=== PATIENT | male | born 1945 | race Caucasian/White ===

== ENCOUNTER 2019-04-07 06:00 | Day surgery (SDC) | payer MEDICARE, OTHER ==
[2019-04-05 11:07] LABS: BASOPHILS % (AUTO) 0.4 % (0-1); EOSINOPHILS # (AUTO) 0.1 X10'3 (0-0.9); EOSINOPHILS % (AUTO) 1.7 % (0-6); HEMATOCRIT 42.8 % (42.0-52.0); HEMOGLOBIN 14.1 g/dl (14.0-17.9); LYMPHOCYTES # (AUTO) 2.1 X10'3 (1.1-4.8); LYMPHOCYTES % (AUTO) 39.6 % (21-51); MEAN CORPUSCULAR HEMOGLOBIN 27.4 PG (27.0-31.0); MEAN CORPUSCULAR HGB CONC 32.9 g/dL (33.0-36.5); MEAN CORPUSCULAR VOLUME 83.3 FL (78-98); MEAN PLATELET VOLUME 7.3 FL (7.4-10.4); MONOCYTES # (AUTO) 0.4 X10'3 (0-0.9); MONOCYTES % (AUTO) 8.4 % (2-12); NEUTROPHILS # (AUTO) 2.7 X10'3 (1.8-7.7); NEUTROPHILS % (AUTO) 49.9 % (42-75); PLATELET COUNT 198 X10'3 (140-440); RED BLOOD COUNT 5.14 X10'6 (4.70-6.10); RED CELL DISTRIBUTION WIDTH 16.6 % (11.5-14.5); WHITE BLOOD COUNT 5.4 X10'3 (4.5-11.0)
[2019-04-05 11:15] LABS: PARTIAL THROMBOPLASTIN TIME 26 SECONDS (22-32)
[2019-04-05 11:23] LABS: ALANINE AMINOTRANSFERASE 23 U/L (12-78); ALBUMIN/GLOBULIN RATIO 1.1 (1.1-1.5); ALKALINE PHOSPHATASE 88 IU/L (46-116); ANION GAP 8 (8-16); ASPARTATE AMINO TRANSFERASE 17 U/L (10-37); BILIRUBIN,TOTAL 0.4 MG/DL (0.1-1.0); BLOOD UREA NITROGEN 15 MG/DL (7-18); CALCIUM 8.9 MG/DL (8.5-10.1); CHLORIDE 106 MMOL/L (99-107); CREATININE 0.94 MG/DL (0.60-1.10); GLUCOSE 92 MG/DL (70-104); SODIUM 142 MMOL/L (135-145); TOTAL PROTEIN 7.5 G/DL (6.4-8.2); eGFR 79 ML/MIN
[2019-04-07] VITALS (15 sets, daily range): BP systolic 92–133; BP diastolic 51–83
[~2019-04-07] VITALS: Ht 177.8 cm; Wt 100.3 kg
[2019-04-07] MEDS ORDERED: normal saline 1,000 ML IV SCH (06:20)
[2019-04-07] MEDS ORDERED: LORazepam 0.5 MG tablet PO PRN (06:20)
[2019-04-07] MEDS ORDERED: nitroGLYCERIN 0.4mg SUBLingual tab SL PRN (06:20)
[2019-04-07] MEDS ORDERED: diphenhydrAMINE 25mg capsule PO PRN (06:20)
[2019-04-07] MEDS ORDERED: AMLO5TAB PO (06:40)
[2019-04-07] MEDS ORDERED: TAM50T PO (06:40)
[2019-04-07] MEDS ORDERED: BENA20TA82 PO (06:40)
[2019-04-07] MEDS ORDERED: OMEP20CA11 PO (06:40)
[2019-04-07] MEDS ORDERED: SERT50TA PO (06:40)
[2019-04-07] MEDS ORDERED: METO-539 PO (06:40)
[2019-04-07] MEDS ORDERED: ASPI-611 PO (06:40)
[2019-04-07] MEDS ORDERED: iohexol 350 MG/ML 50ML vial IV ONE ×2 (08:22→09:18)
[2019-04-07] MEDS ORDERED: iohexol 350MG/ML 100ml bottle IV ONE (08:22)
[2019-04-07] MEDS ORDERED: LIDOcaine 1% (10mg/ml)w/preservative injection 20ml MDV ONE (08:22)
[2019-04-07] MEDS ORDERED: fentaNYL/PF 50MCG/1 ML 2ML syringe ONE (08:59)
[2019-04-07] MEDS ORDERED: midazolam 2 mg/2 ml injection ONE (08:59)
[2019-04-07] MEDS ORDERED: HYDROcodone/acetaminophen 5mg/325mg tablet PO PRN (10:10)
[2019-04-07] MEDS ORDERED: proCHLORperazine 10 MG/2 ml inj IV PRN (10:10)
[2019-04-07] MEDS ORDERED: normal saline 1000ml 1,000 ML IV SCH (10:10)
[2019-04-07] MEDS ORDERED: OXAZEpam 15mg capsule PO PRN (10:10)
[2019-04-07] MEDS ORDERED: HYDROcodone/acetaminophen 10/325mg tab PO PRN (10:10)
[2019-04-07] MEDS ORDERED: ondansetron/PF 4mg/2ml inj IV PRN (10:10)
== END 2019-04-07 16:00 | disposition home or self-care (01) ==
LOC: SSTAY O 06:00
PROVIDERS: ATTEND Internal Medicine Cardiovascular Disease
DX: I25.119 Atherosclerotic heart disease of native coronary artery with unspecified angina pectoris (principal); I10 Essential (primary) hypertension; G47.33 Obstructive sleep apnea (adult) (pediatric); F41.1 Generalized anxiety disorder; I08.3 Combined rheumatic disorders of mitral, aortic and tricuspid valves; E78.5 Hyperlipidemia, unspecified; Z87.891 Personal history of nicotine dependence; Z79.01 Long term (current) use of anticoagulants
CPT/HCPCS: 36415; 71046; 80053; 85025; 85610; 85730; 93005; 93459; 93567; 99152; 99153; C1769; J1644; J2001; J2250; J3010; J7030; Q0163; Q9967; 93458; A4620; A6258; C1760

== ENCOUNTER 2019-05-26 05:31 | Inpatient (IN) | payer MEDICARE, OTHER ==
[2019-05-24 13:51] LABS: BASOPHILS % (AUTO) 0.4 % (0-1); EOSINOPHILS # (AUTO) 0.1 X10'3 (0-0.9); EOSINOPHILS % (AUTO) 1.3 % (0-6); LYMPHOCYTES # (AUTO) 1.6 X10'3 (1.1-4.8); LYMPHOCYTES % (AUTO) 29.9 % (21-51); MEAN CORPUSCULAR HEMOGLOBIN 28.2 PG (27.0-31.0); MEAN CORPUSCULAR HGB CONC 33.3 g/dL (33.0-36.5); MEAN CORPUSCULAR VOLUME 84.6 FL (78-98); MEAN PLATELET VOLUME 7.6 FL (7.4-10.4); MONOCYTES # (AUTO) 0.4 X10'3 (0-0.9); MONOCYTES % (AUTO) 8.4 % (2-12); NEUTROPHILS # (AUTO) 3.2 X10'3 (1.8-7.7); PRE OP HEMATOCRIT 43.1 % (42.0-52.0); PRE OP HEMOGLOBIN 14.4 g/dL (14.0-17.9); PRE OP PLATELET COUNT 219 X10'3 (140-440); RED CELL DISTRIBUTION WIDTH 16.3 % (11.5-14.5)
[2019-05-24 14:01] LABS: CLARITY,URINE SLIGHTLY CLOUDY (Clear); COLOR,URINE YELLOW (Yellow); GLUCOSE, URINE NEGATIVE (Neg); KETONES,URINE NEGATIVE (Neg); LEUKOCYTE ESTERASE ,URINE NEGATIVE (Neg); NITRITES, URINE NEGATIVE (Neg); OCCULT BLOOD,URINE TRACE-INTACT (Neg); PROTEIN,URINE NEGATIVE (Neg); UROBILINOGEN,URINE 0.2 E.U/dL (0.2-1.0)
[2019-05-24 14:01] LABS: ABG BASE EXCESS -1.1 mmol/L (-2.0-3.0); ABG HCO3 22.6 mmol/L (22.0-26.0); ABG OXYGEN SATURATION 95.3 % (95-98); ABG PCO2 (T) 35.1 mmHg (35.0-45.0); ABG PH (T) 7.427 (7.350-7.450); ABG PO2 (T) 77.1 mmHg (83-108); ALLEN'S TEST Positive; FCOHb 0.7 % (0.5-1.5); FO2Hb 94.6 % (94-100); TOTAL HEMOGLOBIN 14.6 G/dl (14.0-17.9)
[2019-05-24 14:03] LABS: PRE OP PROTIME 10.7 SECONDS (9.0-12.0)
[2019-05-24 14:04] LABS: ALBUMIN 3.8 G/DL (3.4-5.0); ALBUMIN/GLOBULIN RATIO 0.9 (1.1-1.5); ALKALINE PHOSPHATASE 87 IU/L (46-116); BLOOD UREA NITROGEN 19 MG/DL (7-18); BUN/CREATININE RATIO 22.6 (5.4-32.0); CALCIUM 9.3 MG/DL (8.5-10.1); CHLORIDE 107 MMOL/L (99-107); CREATININE 0.84 MG/DL (0.60-1.10); PRE OP ALT 23 U/L (30-65); PRE OP ANION GAP 8 (8-16); PRE OP AST 19 U/L (10-37); PRE OP BILIRUB, TOTAL 0.3 MG/DL (0.0-1.0); PRE OP GLUCOSE 121 MG/DL (70-104); PRE OP POTASSIUM 3.8 MMOL/L (3.4-5.1); PRE OP SODIUM 143 MMOL/L (135-145); TOTAL CARBON DIOXIDE 28.3 MMOL/L (24-32); TOTAL PROTEIN 7.9 G/DL (6.4-8.2); eGFR 90 ML/MIN
[2019-05-24 14:09] LABS: UA COLLECTION TYPE CLN CATCH MIDSTREAM
[2019-05-24 14:14] LABS: HYALINE CASTS 0-3 /LPF (NEGATIVE); MUCUS STRANDS MANY /LPF (Neg); SQUAMOUS EPITHELIAL CELL,UR FEW /LPF (FEW)
[2019-05-24 14:16] LABS: BACTERIA,URINE NONE SEEN /HPF (Neg); WBC,URINE 0-4 /HPF (0-4)
[2019-05-26] VITALS (21 sets, daily range): BP systolic 61–132; BP diastolic 38–68
[~2019-05-26] VITALS: Ht 177.8 cm; Wt 97.6 kg
[~2019-05-26 05:31] MED LIST: AMLO5TAB PO; ASPI-611 PO; BENA20TA82 PO; DOCUMENT DATE & TIME OF BETA-BLOCKER PO ONE; LORazepam 2 mg/ml vial IV ONE; METO-384 PO; OMEP20CA11 PO; ROPIVAcaine 0.5% (5mg/ml) 30ml vial ONE; SERT50TA PO; TAM50T PO; cefazolin/dext.iso 2gm/50ml 50 ML IV ONE; famotidine 20mg tablet PO ONE; gabapentin 300mg capsule PO ONE; mupirocin 2% nasal ointment 1gm UD NS ONE; ringers solution, lacted 1,000 ML IV SCH; vancomycin inj 1,500 MG in normal saline 300ml IV soln IV ONE
[2019-05-26] MEDS ORDERED: LIDOcaine 1% (10mg/ml) 2ml vial ONE (06:29)
[2019-05-26] MEDS ORDERED: MIDAZolam 5mg/5ml vial ONE ×2 (06:55→12:55)
[2019-05-26] MEDS ORDERED: SUFENTANIL CITRATE 50 MCG/ML 2ml ampule IV ONE (06:55)
[2019-05-26] MEDS ORDERED: rocuronium 10mg/ml inj IV ONE ×3 (06:57→10:37)
[2019-05-26] MEDS ORDERED: LIDOcaine 2% (20mg/ml) 5ml vial ONE (06:57)
[2019-05-26] MEDS ORDERED: propofol inj 20 ML IV ONE (06:57)
[2019-05-26] MEDS ORDERED: DOPamine/D5W 400mg/250ml bag IV ONE (07:50)
[2019-05-26] MEDS ORDERED: sevoflurane 250ml liquid IH ONE (07:50)
[2019-05-26] MEDS ORDERED: NORepinephrine 8 MG in NS 250 ML BAG (32 mcg/ml) IV ONE (07:50)
[2019-05-26] MEDS ORDERED: aminocaproic acid 250 MG/1 ML inj. ONE ×2 (07:50→12:00)
[2019-05-26] MEDS ORDERED: dexamethasone 4mg/ml inj ONE (07:50)
[2019-05-26] MEDS ORDERED: INSULIN R 100 UNIT in NS 100ML (1 UNIT/1 ML) BAG IV ONE (07:50)
[2019-05-26] MEDS ORDERED: ePHEDrine 50MG/ML INJ. ONE (08:50)
[2019-05-26 09:22] LABS: ABG BASE EXCESS VENOUS -2.7 mmol/L; ABG HCO3 VENOUS 21.9 mmol/L; ABG PCO2 VENOUS 37.3 mmHg; ABG PO2 VENOUS 41.3 mmHg; CL (ABG) 102 mmol/L (99-107); FCOHb VENOUS 0.6 %; FHHb VENOUS 23.9 %; FMetHb VENOUS 0.2 %; FO2Hb VENOUS 75.3 %; GLUCOSE (ABG) 123 mg/dl (70-104); IONIZED CA (ABG) 1.12 mmol/L (1.03-1.32); NA (ABG) 138 mmol/L (135-145); TOTAL HEMOGLOBIN 11.8 G/dl (14.0-17.9)
[2019-05-26 09:22] LABS: ACT @ 1.70 U 336 SEC (193-297); ACT @ 2.84 U 496 SEC (260-420); BASELINE ACT 153 SEC (101-148); PATIENT WEIGHT 98.0k KG
[2019-05-26] MEDS ORDERED: papaverine 30 mg/ml 2ml inj. IA ONE (09:28)
[2019-05-26] MEDS ORDERED: heparin 10,000 units/1 ML INJ IR ONE (09:28)
[2019-05-26 09:45] LABS: ABG BASE EXCESS 0.1 mmol/L (-2.0-3.0); ABG HCO3 22.6 mmol/L (22.0-26.0); ABG OXYGEN SATURATION 99.2 % (95-98); ABG PCO2 29.1 mmHg (35.0-45.0); ABG PH 7.508 (7.350-7.450); ABG PO2 336.7 mmHg (60.0-100.0); CL (ABG) 101 mmol/L (99-107); FCOHb 0.3 % (0.5-1.5); FMetHb 0.1 % (0.3-1.12); FO2Hb 98.8 % (94-100); GLUCOSE (ABG) 114 mg/dl (70-104); IONIZED CA (ABG) 0.98 mmol/L (1.03-1.32); K (ABG) 4.8 mmol/L (3.3-5.1); NA (ABG) 136 mmol/L (135-145); TOTAL HEMOGLOBIN 9.6 G/dl (14.0-17.9)
[2019-05-26 10:00] LABS: ABG HCO3 22.2 mmol/L (22.0-26.0); ABG OXYGEN SATURATION 99.1 % (95-98); ABG PCO2 31.6 mmHg (35.0-45.0); ABG PH 7.465 (7.350-7.450); ABG PO2 293.3 mmHg (60.0-100.0); CL (ABG) 102 mmol/L (99-107); FCOHb 0.3 % (0.5-1.5); FMetHb 0.5 % (0.3-1.12); FO2Hb 98.3 % (94-100); GLUCOSE (ABG) 113 mg/dl (70-104); IONIZED CA (ABG) 1.04 mmol/L (1.03-1.32); K (ABG) 4.7 mmol/L (3.3-5.1); NA (ABG) 135 mmol/L (135-145); TOTAL HEMOGLOBIN 10.1 G/dl (14.0-17.9)
[2019-05-26 10:11] LABS: ABG BASE EXCESS -1.8 mmol/L (-2.0-3.0); ABG HCO3 23.2 mmol/L (22.0-26.0); ABG PCO2 40.1 mmHg (35.0-45.0); ABG PO2 245.5 mmHg (60.0-100.0); CL (ABG) 102 mmol/L (99-107); FCOHb 0.3 % (0.5-1.5); FMetHb 0.4 % (0.3-1.12); FO2Hb 98.3 % (94-100); GLUCOSE (ABG) 119 mg/dl (70-104); IONIZED CA (ABG) 1.06 mmol/L (1.03-1.32); K (ABG) 4.7 mmol/L (3.3-5.1); NA (ABG) 136 mmol/L (135-145); TOTAL HEMOGLOBIN 10.3 G/dl (14.0-17.9)
[2019-05-26] MEDS ORDERED: dexamethasone sod phosphate 4mg/ml inj. ONE (10:35)
[2019-05-26 10:41] LABS: ABG BASE EXCESS -1.3 mmol/L (-2.0-3.0); ABG PCO2 36.8 mmHg (35.0-45.0); ABG PH 7.413 (7.350-7.450); CL (ABG) 102 mmol/L (99-107); FCOHb 0.3 % (0.5-1.5); FMetHb 0.4 % (0.3-1.12); FO2Hb 98.3 % (94-100); GLUCOSE (ABG) 146 mg/dl (70-104); IONIZED CA (ABG) 1.22 mmol/L (1.03-1.32); K (ABG) 4.9 mmol/L (3.3-5.1); NA (ABG) 135 mmol/L (135-145)
[2019-05-26 11:00] LABS: ABG BASE EXCESS -1.3 mmol/L (-2.0-3.0); ABG HCO3 24.1 mmol/L (22.0-26.0); ABG OXYGEN SATURATION 99.3 % (95-98); ABG PCO2 43.2 mmHg (35.0-45.0); ABG PH 7.364 (7.350-7.450); ABG PO2 331.5 mmHg (60.0-100.0); CL (ABG) 102 mmol/L (99-107); FMetHb 0.2 % (0.3-1.12); FO2Hb 99.1 % (94-100); GLUCOSE (ABG) 158 mg/dl (70-104); IONIZED CA (ABG) 1.22 mmol/L (1.03-1.32); K (ABG) 4.8 mmol/L (3.3-5.1); NA (ABG) 135 mmol/L (135-145); TOTAL HEMOGLOBIN 10.3 G/dl (14.0-17.9)
[2019-05-26 11:40] LABS: ABG BASE EXCESS -1.5 mmol/L (-2.0-3.0); ABG HCO3 20.3 mmol/L (22.0-26.0); ABG OXYGEN SATURATION 98.7 % (95-98); ABG PCO2 25.4 mmHg (35.0-45.0); ABG PH 7.521 (7.350-7.450); CL (ABG) 103 mmol/L (99-107); FCOHb 0.3 % (0.5-1.5); FMetHb 0.3 % (0.3-1.12); FO2Hb 98.1 % (94-100); GLUCOSE (ABG) 144 mg/dl (70-104); IONIZED CA (ABG) 1.16 mmol/L (1.03-1.32); K (ABG) 4.5 mmol/L (3.3-5.1); NA (ABG) 138 mmol/L (135-145); TOTAL HEMOGLOBIN 10.4 G/dl (14.0-17.9)
[2019-05-26] MEDS ORDERED: sodium bicarbonate (8.4%) inj. 1 MEQ/ML ML ONE (11:56)
[2019-05-26 12:00] LABS: ABG BASE EXCESS 3.4 mmol/L (-2.0-3.0); ABG OXYGEN SATURATION 98.7 % (95-98); ABG PCO2 42.7 mmHg (35.0-45.0); ABG PH 7.434 (7.350-7.450); ABG PO2 180.4 mmHg (60.0-100.0); CL (ABG) 104 mmol/L (99-107); FCOHb 0.3 % (0.5-1.5); FMetHb 0.2 % (0.3-1.12); FO2Hb 98.2 % (94-100); GLUCOSE (ABG) 152 mg/dl (70-104); IONIZED CA (ABG) 1.11 mmol/L (1.03-1.32); K (ABG) 5.2 mmol/L (3.3-5.1); NA (ABG) 142 mmol/L (135-145); TOTAL HEMOGLOBIN 10.1 G/dl (14.0-17.9)
[2019-05-26] MEDS ORDERED: phenylephrine 10mg/ml inj. ONE (12:00)
[2019-05-26] MEDS ORDERED: MAGNESIUM SULFATE 4 MEQ/ML (5gm/10ml) injection ONE (12:00)
[2019-05-26] MEDS ORDERED: methylPREDNISolone sod. succ. 500mg inj ONE (12:00)
[2019-05-26] MEDS ORDERED: LIDOcaine 2% (20 mg/ml) 5ml cardiac syringe ONE (12:00)
[2019-05-26] MEDS ORDERED: albumin (human) 25% 100 ML IV solution IV ONE (12:00)
[2019-05-26] MEDS ORDERED: heparin 1,000 units/ml 10ml inj ONE (12:00)
[2019-05-26] MEDS ORDERED: sodium bicarbonate (8.4%) 1 mEq/ml syringe ONE (12:00)
[2019-05-26] MEDS ORDERED: potassium Cl 2 mEq/ml inj IV ONE (12:00)
[2019-05-26] MEDS ORDERED: calcium chloride 100 MG/1 ML inj IV ONE ×2 (12:00→14:41)
[2019-05-26 12:25] LABS: ABG BASE EXCESS -5.1 mmol/L (-2.0-3.0); ABG HCO3 18.7 mmol/L (22.0-26.0); ABG OXYGEN SATURATION 99.3 % (95-98); ABG PCO2 30.4 mmHg (35.0-45.0); ABG PH 7.407 (7.350-7.450); ABG PO2 363.6 mmHg (60.0-100.0); CL (ABG) 103 mmol/L (99-107); FCOHb 0.3 % (0.5-1.5); FMetHb 0.4 % (0.3-1.12); FO2Hb 98.6 % (94-100); GLUCOSE (ABG) 206 mg/dl (70-104); IONIZED CA (ABG) 1.17 mmol/L (1.03-1.32); NA (ABG) 135 mmol/L (135-145); TOTAL HEMOGLOBIN 10.3 G/dl (14.0-17.9)
[2019-05-26 12:40] LABS: ABG BASE EXCESS -0.7 mmol/L (-2.0-3.0); ABG HCO3 23.3 mmol/L (22.0-26.0); ABG OXYGEN SATURATION 98.9 % (95-98); ABG PCO2 35.6 mmHg (35.0-45.0); ABG PH 7.433 (7.350-7.450); CL (ABG) 103 mmol/L (99-107); FCOHb 0.3 % (0.5-1.5); FMetHb 0.4 % (0.3-1.12); FO2Hb 98.2 % (94-100); GLUCOSE (ABG) 219 mg/dl (70-104); IONIZED CA (ABG) 1.14 mmol/L (1.03-1.32); K (ABG) 3.7 mmol/L (3.3-5.1); NA (ABG) 140 mmol/L (135-145); TOTAL HEMOGLOBIN 10.3 G/dl (14.0-17.9)
[2019-05-26 13:05] LABS: ABG BASE EXCESS -1.3 mmol/L (-2.0-3.0); ABG OXYGEN SATURATION 98.7 % (95-98); ABG PCO2 36.8 mmHg (35.0-45.0); ABG PH 7.414 (7.350-7.450); ABG PO2 217.9 mmHg (60.0-100.0); CL (ABG) 104 mmol/L (99-107); FCOHb 0.3 % (0.5-1.5); FMetHb 0.5 % (0.3-1.12); FO2Hb 97.9 % (94-100); GLUCOSE (ABG) 217 mg/dl (70-104); IONIZED CA (ABG) 1.15 mmol/L (1.03-1.32); K (ABG) 3.9 mmol/L (3.3-5.1); NA (ABG) 139 mmol/L (135-145); TOTAL HEMOGLOBIN 10.4 G/dl (14.0-17.9)
[2019-05-26] MEDS ORDERED: albumin (Human) 5% 250ml 250 ML IV ONE ×7 (13:11→14:41)
[2019-05-26] MEDS ORDERED: DESMOPRESSIN IV ONE (13:45)
[2019-05-26] MEDS ORDERED: NORMAL SALINE IV ONE (13:45)
[2019-05-26 13:46] LABS: ABG BASE EXCESS VENOUS -2.1 mmol/L; ABG HCO3 VENOUS 21.7 mmol/L; ABG PCO2 VENOUS 32.8 mmHg; ABG PO2 VENOUS 35.5 mmHg; CL (ABG) 104 mmol/L (99-107); FCOHb VENOUS 2.3 %; FHHb VENOUS 32.3 %; FMetHb VENOUS 0.3 %; FO2Hb VENOUS 65.1 %; GLUCOSE (ABG) 196 mg/dl (70-104); IONIZED CA (ABG) 1.06 mmol/L (1.03-1.32); K (ABG) 3.6 mmol/L (3.3-5.1); NA (ABG) 140 mmol/L (135-145); TOTAL HEMOGLOBIN 7.9 G/dl (14.0-17.9)
[2019-05-26] MEDS ORDERED: Thrombin (Bovine) 5,000 unit vial TP ONE (13:59)
[2019-05-26] MEDS ORDERED: gelatin sponge, absorbable (Gelfoam 100) sponge TP ONE (13:59)
[2019-05-26 14:38] LABS: PARTIAL THROMBOPLASTIN TIME 54 SECONDS (22-32)
[2019-05-26 14:55] LABS: ABG BASE EXCESS -1.2 mmol/L (-2.0-3.0); ABG HCO3 23.5 mmol/L (22.0-26.0); ABG OXYGEN SATURATION 99.1 % (95-98); ABG PCO2 38.9 mmHg (35.0-45.0); ABG PH 7.399 (7.350-7.450); CL (ABG) 109 mmol/L (99-107); FCOHb 0.2 % (0.5-1.5); FMetHb 0.7 % (0.3-1.12); FO2Hb 98.2 % (94-100); GLUCOSE (ABG) 175 mg/dl (70-104); IONIZED CA (ABG) 1.09 mmol/L (1.03-1.32); K (ABG) 3.2 mmol/L (3.3-5.1); NA (ABG) 142 mmol/L (135-145); TOTAL HEMOGLOBIN 8.2 G/dl (14.0-17.9)
[2019-05-26] MEDS ORDERED: niCARDipine-NS 40mg/200ml IVPB 200 ML IV PRN (15:26)
[2019-05-26] MEDS ORDERED: nitroGLYCERIN-Tridil 50MG/D5W 250 ML IV PRN (15:26)
[2019-05-26] MEDS ORDERED: magnesium 4gm in 100ml NS 100 ML IV PRN (15:30)
[2019-05-26] MEDS ORDERED: magnesium hydroxide 30ml (MOM) UD suspension PO PRN (15:30)
[2019-05-26] MEDS ORDERED: Neutra Phos packet PO PRN (15:30)
[2019-05-26] MEDS ORDERED: insulin regular, human inj. 100 UNITS in normal saline 100ml IV soln 100 ML IV SCH ×2 (15:30)
[2019-05-26] MEDS ORDERED: metoclopramide 5 mg/ml inj IV PRN (15:30)
[2019-05-26] MEDS ORDERED: normal saline 250ml IV soln 250 ML IV PRN (15:30)
[2019-05-26] MEDS ORDERED: dextrose 50%-water 50ml dispensing syringe IV PRN (15:30)
[2019-05-26] MEDS ORDERED: ondansetron/PF 4mg/2ml inj IV PRN (15:30)
[2019-05-26] MEDS ORDERED: acetaminophen 325mg tablet PO PRN (15:30)
[2019-05-26] MEDS ORDERED: HYDROcodone/acetaminophen 10/325mg tab PO PRN ×2 (15:30)
[2019-05-26] MEDS ORDERED: potassium Cl 20 mEq SR tablet PO PRN (15:30)
[2019-05-26] MEDS ORDERED: magnesium 2GM in 50ml NS 50 ML IV PRN (15:30)
[2019-05-26] MEDS ORDERED: sodium phosphate inj. 15 MMOL in dextrose 5%-water 150 ML IV PRN (15:30)
[2019-05-26] MEDS ORDERED: pantoprazole 40 MG vial IV ONE (15:30)
[2019-05-26] MEDS ORDERED: sodium phosphate inj. 30 MMOL in dextrose 5%-water 250 ML IV PRN (15:30)
--- NOTE | 2019-05-26 15:30 | NUR ---
Received to room 2044, accompanied by MDs and surgical crew, [place]. Placed on ventilator, to road tester, arterial line and PA line pressure monitored. Chest tubes to suction at 20 cm. George cath to gravity drainage. Dressings are dry and intact. See assessment record. All vasoactive drugs are infusing via central line.
--- NOTE | 2019-05-26 15:48 | NUR ---
Nutrition consult: Pt s/p CABG x 2, will need nutrition therapy education prior to discharge once stable. Will continue to follow. Addendum: 05/26/19 at 15[address] Amended: Links added.
[2019-05-26 15:51] LABS: ABG BASE EXCESS -0.1 mmol/L (-2.0-3.0); ABG HCO3 24.8 mmol/L (22.0-26.0); ABG OXYGEN SATURATION 98.2 % (95-98); ABG PCO2 (T) 39.2 mmHg (35.0-45.0); ABG PH (T) 7.413 (7.350-7.450); ABG PO2 (T) 144.5 mmHg (83-108); FCOHb 0.3 % (0.5-1.5); FMetHb 0.3 % (0.3-1.12); FO2Hb 97.6 % (94-100); PATIENT TEMPERATURE 35.6; PEEP 5 cm H2O; RESPIRATORY RATE 10 b/min; RESPIRATORY RATE (OBSERVED) 10 b/min; TIDAL VOLUME 700 mL
[2019-05-26] MEDS ORDERED: HUMAN PROTHROMBIN COMPLX(PCC) 500 UNIT KIT IV ONE ×2 (15:55→16:35)
[2019-05-26 16:01] LABS: BASOPHILS % (AUTO) 0.1 % (0-1); EOSINOPHILS % (AUTO) 0.1 % (0-6); HEMOGLOBIN 7.1 g/dl (14.0-17.9); LYMPHOCYTES # (AUTO) 0.6 X10'3 (1.1-4.8); LYMPHOCYTES % (AUTO) 10.5 % (21-51); MEAN CORPUSCULAR HEMOGLOBIN 28.9 PG (27.0-31.0); MEAN CORPUSCULAR HGB CONC 33.6 g/dL (33.0-36.5); MEAN CORPUSCULAR VOLUME 85.9 FL (78-98); MONOCYTES # (AUTO) 0.2 X10'3 (0-0.9); MONOCYTES % (AUTO) 3.6 % (2-12); NEUTROPHILS # (AUTO) 4.9 X10'3 (1.8-7.7); NEUTROPHILS % (AUTO) 85.7 % (42-75); PLATELET COUNT 93 X10'3 (140-440); RED BLOOD COUNT 2.46 X10'6 (4.70-6.10); RED CELL DISTRIBUTION WIDTH 15.7 % (11.5-14.5); WHITE BLOOD COUNT 5.7 X10'3 (4.5-11.0)
[2019-05-26] MEDS: albumin (Human) 5% 250ml 250 ML IV PRN ×3 (16:01→18:21)
[2019-05-26 16:04] LABS: HEMATOCRIT 21.1 % (42.0-52.0)
[2019-05-26 16:05] LABS: PARTIAL THROMBOPLASTIN TIME 36 SECONDS (22-32)
[2019-05-26 16:08] LABS: ALANINE AMINOTRANSFERASE 16 U/L (12-78); ALBUMIN 2.7 G/DL (3.4-5.0); ALBUMIN/GLOBULIN RATIO 1.7 (1.1-1.5); ALKALINE PHOSPHATASE 33 IU/L (46-116); ANION GAP 7 (8-16); ASPARTATE AMINO TRANSFERASE 33 U/L (10-37); BILIRUBIN,TOTAL 0.6 MG/DL (0.1-1.0); BLOOD UREA NITROGEN 15 MG/DL (7-18); BUN/CREATININE RATIO 17.9 (5.4-32.0); CALCIUM 7.6 MG/DL (8.5-10.1); CHLORIDE 116 MMOL/L (99-107); CREATININE 0.84 MG/DL (0.60-1.10); GLUCOSE 152 MG/DL (70-104); MAGNESIUM 2.5 MG/DL (1.5-2.4); POTASSIUM 3.4 MMOL/L (3.5-5.1); SODIUM 150 MMOL/L (135-145); TOTAL CARBON DIOXIDE 26.6 MMOL/L (24-32); TOTAL PROTEIN 4.3 G/DL (6.4-8.2); eGFR 90 ML/MIN
[2019-05-26 16:15] LABS: PHOSPHORUS 1.2 MG/DL (2.3-4.5)
--- NOTE | 2019-05-26 16:30 | NUR ---
Contacted Dr. Nichols to update him regarding current labs and interventions performed. He ok'd to give 1 more unit of PRBCs and 1 more of cryo. He also ordered a second KCentra.
[2019-05-26] MEDS: morphine 4 MG/ML inj SYRINge IV PRN ×6 (16:43→23:01)
--- NOTE | 2019-05-26 16:50 | NUR ---
Dr. Nichols arrived to view patient, ct output, CI, BP, drips, current labs and interventions. Will recheck H/H post infusion.
[2019-05-26] MEDS: potassium Cl 20mEq/100mL bag 100 ML IV PRN ×4 (16:56→20:26)
[2019-05-26] MEDS: sodium chloride 0.45% 1,000 ML IV SCH (16:56)
[2019-05-26] MEDS: ceFAZolin 1GM/D5W- ADD-VANTAGE 50 ML IV SCH (17:27)
[2019-05-26] MEDS: insulin regular, human 100 UNIT in normal saline 100ml IV soln 99 ML IV SCH ×2 (17:38)
[2019-05-26 17:52] LABS: HEMATOCRIT 23.9 % (42.0-52.0); HEMOGLOBIN 8.1 g/dl (14.0-17.9); MEAN CORPUSCULAR HEMOGLOBIN 29.4 PG (27.0-31.0); MEAN CORPUSCULAR VOLUME 86.4 FL (78-98); MEAN PLATELET VOLUME 7.6 FL (7.4-10.4); PLATELET COUNT 82 X10'3 (140-440); RED BLOOD COUNT 2.77 X10'6 (4.70-6.10); WHITE BLOOD COUNT 7.1 X10'3 (4.5-11.0)
[2019-05-26] MEDS: DOPamine 400mg/D5W 250ml 250 ML IV PRN (18:00)
[2019-05-26] MEDS ORDERED: insulin Lispro (HumaLOG) vial - multi-dose SQ SCH (18:00)
[2019-05-26] MEDS: NORepinephrine 8mg/ 250ml NS 250 ML IV SCH (18:02)
--- NOTE | 2019-05-26 18:34 | NUR ---
Contacted Dr. Nichols, gave new orders. Updated regarding current H/H for which he ordered 1 more unit of PRBC's. Informed him of patient's "jerking" movements and results in decreased BP, saturation in 50's, peak pressure. Orders for Precedex for behavior. Dr. Nichols will be calling back at 1999 to see new chest tube output total, current stated output at 640ml.
[2019-05-26] MEDS ORDERED: albumin (Human) 5% 250ml 250 ML IV PRN (18:35)
--- NOTE | 2019-05-26 18:40 | NUR ---
Report given to Raquel Ramirez RN.
[2019-05-26] MEDS: dexmedetomidin/NS 400mcg/100ml 100 ML IV SCH (19:35)
[2019-05-26] MEDS: docusate sod 100mg capsule PO SCH (20:00)
[2019-05-26] MEDS: mupirocin 2% nasal ointment 1gm UD NS SCH (20:26)
[2019-05-26] MEDS: vancomycin/NS 1 GM ADD-VANTAGE 250 ML IV SCH (20:26)
[2019-05-26] MEDS: gabapentin 300mg capsule PO SCH (21:00)
[2019-05-26 22:51] LABS: BASOPHILS % (AUTO) 0 % (0-1); EOSINOPHILS % (AUTO) 0 % (0-6); HEMATOCRIT 24.9 % (42.0-52.0); HEMOGLOBIN 8.5 g/dl (14.0-17.9); LYMPHOCYTES # (AUTO) 0.4 X10'3 (1.1-4.8); MEAN CORPUSCULAR HEMOGLOBIN 29.2 PG (27.0-31.0); MEAN CORPUSCULAR VOLUME 85.8 FL (78-98); MEAN PLATELET VOLUME 7.5 FL (7.4-10.4); MONOCYTES # (AUTO) 0.5 X10'3 (0-0.9); NEUTROPHILS # (AUTO) 6.2 X10'3 (1.8-7.7); PLATELET COUNT 74 X10'3 (140-440); RED CELL DISTRIBUTION WIDTH 15.6 % (11.5-14.5); WHITE BLOOD COUNT 7.2 X10'3 (4.5-11.0)
[2019-05-26 23:01] LABS: ALBUMIN 3.1 G/DL (3.4-5.0); ANION GAP 5 (8-16); BLOOD UREA NITROGEN 14 MG/DL (7-18); BUN/CREATININE RATIO 20.6 (5.4-32.0); CALCIUM 7.5 MG/DL (8.5-10.1); CHLORIDE 116 MMOL/L (99-107); CREATININE 0.68 MG/DL (0.60-1.10); GLUCOSE 132 MG/DL (70-104); MAGNESIUM 2.1 MG/DL (1.5-2.4); PHOSPHORUS 3.2 MG/DL (2.3-4.5); POTASSIUM 4.7 MMOL/L (3.5-5.1); SODIUM 146 MMOL/L (135-145); TOTAL CARBON DIOXIDE 25.3 MMOL/L (24-32); eGFR > 90 ML/MIN
[2019-05-27] VITALS (24 sets, daily range): BP systolic 95–134; BP diastolic 48–62
[2019-05-27] MEDS: dexmedetomidin/NS 400mcg/100ml 100 ML IV SCH ×3 (00:12→18:41)
[2019-05-27] MEDS: insulin regular, human 100 UNIT in normal saline 100ml IV soln 99 ML IV SCH ×2 (00:14)
[2019-05-27] MEDS: ceFAZolin 1GM/D5W- ADD-VANTAGE 50 ML IV SCH ×3 (00:15→17:01)
[2019-05-27] MEDS: morphine 4 MG/ML inj SYRINge IV PRN ×9 (02:24→19:45)
[2019-05-27 03:43] LABS: BASOPHILS % (AUTO) 0.1 % (0-1); EOSINOPHILS % (AUTO) 0 % (0-6); HEMATOCRIT 23.8 % (42.0-52.0); HEMOGLOBIN 8.2 g/dl (14.0-17.9); LYMPHOCYTES # (AUTO) 0.5 X10'3 (1.1-4.8); LYMPHOCYTES % (AUTO) 7.2 % (21-51); MEAN CORPUSCULAR HEMOGLOBIN 29.3 PG (27.0-31.0); MEAN CORPUSCULAR HGB CONC 34.5 g/dL (33.0-36.5); MEAN CORPUSCULAR VOLUME 84.9 FL (78-98); MEAN PLATELET VOLUME 7.5 FL (7.4-10.4); MONOCYTES # (AUTO) 0.6 X10'3 (0-0.9); MONOCYTES % (AUTO) 7.4 % (2-12); NEUTROPHILS # (AUTO) 6.5 X10'3 (1.8-7.7); NEUTROPHILS % (AUTO) 85.3 % (42-75); PLATELET COUNT 80 X10'3 (140-440); RED BLOOD COUNT 2.81 X10'6 (4.70-6.10); RED CELL DISTRIBUTION WIDTH 15.6 % (11.5-14.5); WHITE BLOOD COUNT 7.6 X10'3 (4.5-11.0)
[2019-05-27 04:02] LABS: PARTIAL THROMBOPLASTIN TIME 30 SECONDS (22-32)
[2019-05-27] MEDS: albumin (Human) 5% 250ml 250 ML IV PRN (04:09)
[2019-05-27 04:13] LABS: ALANINE AMINOTRANSFERASE 20 U/L (12-78); ALBUMIN 3.1 G/DL (3.4-5.0); ALBUMIN/GLOBULIN RATIO 1.6 (1.1-1.5); ALKALINE PHOSPHATASE 34 IU/L (46-116); ANION GAP 8 (8-16); ASPARTATE AMINO TRANSFERASE 45 U/L (10-37); BILIRUBIN,TOTAL 0.5 MG/DL (0.1-1.0); BLOOD UREA NITROGEN 15 MG/DL (7-18); BUN/CREATININE RATIO 19.2 (5.4-32.0); CALCIUM 7.4 MG/DL (8.5-10.1); CHLORIDE 117 MMOL/L (99-107); CREATININE 0.78 MG/DL (0.60-1.10); GLUCOSE 120 MG/DL (70-104); MAGNESIUM 2.1 MG/DL (1.5-2.4); PHOSPHORUS 3.7 MG/DL (2.3-4.5); POTASSIUM 4.4 MMOL/L (3.5-5.1); SODIUM 150 MMOL/L (135-145); TOTAL CARBON DIOXIDE 25.1 MMOL/L (24-32); eGFR > 90 ML/MIN
[2019-05-27 04:15] LABS: ABG BASE EXCESS -2.3 mmol/L (-2.0-3.0); ABG HCO3 22.6 mmol/L (22.0-26.0); ABG OXYGEN SATURATION 93.6 % (95-98); ABG PH (T) 7.373 (7.350-7.450); FCOHb 0.3 % (0.5-1.5); FMetHb 0.2 % (0.3-1.12); FO2Hb 93.1 % (94-100); MINUTE VOLUME 7 L/min; PATIENT TEMPERATURE 37.5; PEEP 5 cm H2O; RESPIRATORY RATE 10 b/min; RESPIRATORY RATE (OBSERVED) 10 b/min; TIDAL VOLUME 700 mL
[2019-05-27] MEDS ORDERED: papaverine 30 mg/ml 2ml inj. ONE (06:00)
[2019-05-27] MEDS ORDERED: heparin 10,000 units/1 ML INJ ONE (06:00)
--- NOTE | 2019-05-27 06:15 | NUR ---
Patient in room ICU 2044. I have received report from assistant casino shift manager and had the opportunity to ask questions and assume patient care.
[2019-05-27] MEDS ORDERED: LORazepam 2 mg/ml vial ONE (06:37)
[2019-05-27] MEDS ORDERED: furosemide 40mg/4ml inj IV ONE (06:50)
[2019-05-27] MEDS: metoprolol tartrate 12.5mg (1/2 tablet) PO SCH ×2 (08:00→20:00)
[2019-05-27] MEDS ORDERED: amiodarone 150mg/dext, iso-os 100 ML IV ONE ×2 (08:08→08:40)
[2019-05-27] MEDS ORDERED: amiodarone/D5 360MG/200ML BAG 200 ML IV ONE (08:09)
[2019-05-27] MEDS: vancomycin/NS 1 GM ADD-VANTAGE 250 ML IV SCH ×2 (08:41→20:39)
[2019-05-27] MEDS: clonazePAM 1mg tablet PO SCH ×3 (08:41→20:39)
[2019-05-27] MEDS: atorvastatin 10mg tablet PO SCH (08:41)
[2019-05-27] MEDS: gabapentin 300mg capsule PO SCH ×3 (08:41→20:39)
[2019-05-27] MEDS: sertraline 50mg tablet PO SCH (08:41)
[2019-05-27] MEDS: docusate sod 100mg capsule PO SCH ×2 (08:41→20:39)
[2019-05-27] MEDS: mupirocin 2% nasal ointment 1gm UD NS SCH ×2 (08:42→20:00)
[2019-05-27] MEDS: aspirin 325mg tablet, delayed-release (Ecotrin) PO SCH (08:42)
[2019-05-27 08:55] LABS: ACTIVATED CLOTTING TIME 109 SEC (101-148)
[2019-05-27] MEDS: NORepinephrine 8mg/ 250ml NS 250 ML IV SCH (09:48)
[2019-05-27 11:14] LABS: PLATELET COUNT 87 X10'3 (140-440)
[2019-05-27 11:16] LABS: D-DIMER 2.11 MG/L FEU (0-0.50); PARTIAL THROMBOPLASTIN TIME 33 SECONDS (22-32)
[2019-05-27 11:22] LABS: CREATINE KINASE < 7 U/L (39-308)
--- NOTE | 2019-05-27 12:30 | NUR ---
Initial assessment (05/27): Pt is currently on ventilator with hypothermic protocol due to full arrest for 37mins per RN. Pt has Mathieu-Isael with dropping of blood pressure and increase of heart rate per beside RN.To check CPK and possible EEG to check for seizure activity per MD at rounds. Possible wean off ventilator today per MD. TF rec. below for if prolongs intubation and to receive TF once rewarmed. Will continue to monitor. Recommendations: 1.TF recs using Vital High Protein at goal rate of 75ml/hr;to provide 1800ml fluid,1800kcal,1512ml free water,and 158g protein.Additional water flushes 300ml Q6 due to elevated Na level 2.Bowel care routine 3.wt per rx 4.Once extubated, advance diet to heart healthy as medically indicated. 5.Monitor needs for ONS with diet advancement r/t post CABG Addendum: 05/27/19 at [address] Amended: Links added. Addendum: 05/27/19 at 12[address] I have reviewed and agree with note by [employer]. La Nena Fonseca, ROSE
[2019-05-27] MEDS: amiodarone/D5 360MG/200ML BAG 200 ML IV SCH (14:16)
[2019-05-27] MEDS ORDERED: fentaNYL/PF 50MCG/1 ML 2ML syringe ONE (15:45)
[2019-05-27] MEDS ORDERED: midazolam 2 mg/2 ml injection ONE ×2 (15:47→15:48)
[2019-05-27] MEDS: acetaminophen 325mg tablet PO PRN (17:00)
--- NOTE | 2019-05-27 17:00 | NUR ---
sedation vacation patient awake and responsive nodding head appropriately and squeezing hands jose g and movine toes to both feet to command.
[2019-05-27 17:01] LABS: BASOPHILS % (AUTO) 0.1 % (0-1); EOSINOPHILS % (AUTO) 0 % (0-6); HEMATOCRIT 23.3 % (42.0-52.0); HEMOGLOBIN 7.9 g/dl (14.0-17.9); LYMPHOCYTES # (AUTO) 1.1 X10'3 (1.1-4.8); LYMPHOCYTES % (AUTO) 8.5 % (21-51); MEAN CORPUSCULAR HEMOGLOBIN 28.8 PG (27.0-31.0); MEAN CORPUSCULAR HGB CONC 33.8 g/dL (33.0-36.5); MEAN CORPUSCULAR VOLUME 85.2 FL (78-98); MEAN PLATELET VOLUME 7.7 FL (7.4-10.4); MONOCYTES # (AUTO) 1.6 X10'3 (0-0.9); MONOCYTES % (AUTO) 12.8 % (2-12); NEUTROPHILS # (AUTO) 9.8 X10'3 (1.8-7.7); NEUTROPHILS % (AUTO) 78.6 % (42-75); PLATELET COUNT 107 X10'3 (140-440); RED BLOOD COUNT 2.74 X10'6 (4.70-6.10); RED CELL DISTRIBUTION WIDTH 16.1 % (11.5-14.5); WHITE BLOOD COUNT 12.5 X10'3 (4.5-11.0)
[2019-05-27 17:07] LABS: ALANINE AMINOTRANSFERASE 20 U/L (12-78); ALBUMIN 3.1 G/DL (3.4-5.0); ALBUMIN/GLOBULIN RATIO 1.6 (1.1-1.5); ALKALINE PHOSPHATASE 36 IU/L (46-116); ANION GAP 8 (8-16); ASPARTATE AMINO TRANSFERASE 45 U/L (10-37); BILIRUBIN,TOTAL 0.3 MG/DL (0.1-1.0); BLOOD UREA NITROGEN 19 MG/DL (7-18); BUN/CREATININE RATIO 20.9 (5.4-32.0); CALCIUM 7.5 MG/DL (8.5-10.1); CHLORIDE 114 MMOL/L (99-107); CREATININE 0.91 MG/DL (0.60-1.10); GLUCOSE 159 MG/DL (70-104); SODIUM 147 MMOL/L (135-145); TOTAL CARBON DIOXIDE 25.4 MMOL/L (24-32); TOTAL PROTEIN 5.1 G/DL (6.4-8.2); eGFR 82 ML/MIN
[2019-05-27] MEDS: potassium Cl 20mEq/100mL bag 100 ML IV PRN ×2 (17:35→18:41)
[2019-05-27 17:55] LABS: CREATINE KINASE 958 U/L (39-308); MAGNESIUM 1.9 MG/DL (1.5-2.4); PHOSPHORUS 3.7 MG/DL (2.3-4.5)
--- NOTE | 2019-05-27 18:35 | NUR ---
Problems reprioritized. Patient report given, questions answered & plan of care reviewed with oncomign shift.
[2019-05-27] MEDS ORDERED: levetiracetam inj 500 MG in normal saline 100ml IV soln 95 ML IV SCH (20:00)
[2019-05-27] MEDS: Levetiracetam-NS 500mg/100ml 100 ML IV SCH (20:20)
[2019-05-28] VITALS (25 sets, daily range): BP systolic 91–131; BP diastolic 18–62
[2019-05-28] MEDS: ceFAZolin 1GM/D5W- ADD-VANTAGE 50 ML IV SCH (00:13)
[2019-05-28] MEDS: amiodarone/D5 360MG/200ML BAG 200 ML IV SCH ×2 (01:02→14:02)
[2019-05-28] MEDS: morphine 4 MG/ML inj SYRINge IV PRN (03:28)
[2019-05-28 03:29] LABS: BASOPHILS % (AUTO) 0.1 % (0-1); EOSINOPHILS % (AUTO) 0 % (0-6); HEMOGLOBIN 7.2 g/dl (14.0-17.9); LYMPHOCYTES % (AUTO) 12.4 % (21-51); MEAN CORPUSCULAR HEMOGLOBIN 29.4 PG (27.0-31.0); MEAN CORPUSCULAR HGB CONC 34.4 g/dL (33.0-36.5); MEAN CORPUSCULAR VOLUME 85.3 FL (78-98); MEAN PLATELET VOLUME 7.7 FL (7.4-10.4); MONOCYTES # (AUTO) 0.7 X10'3 (0-0.9); MONOCYTES % (AUTO) 9.3 % (2-12); NEUTROPHILS # (AUTO) 6.1 X10'3 (1.8-7.7); NEUTROPHILS % (AUTO) 78.2 % (42-75); PLATELET COUNT 82 X10'3 (140-440); RED BLOOD COUNT 2.45 X10'6 (4.70-6.10); RED CELL DISTRIBUTION WIDTH 15.9 % (11.5-14.5); WHITE BLOOD COUNT 7.8 X10'3 (4.5-11.0)
[2019-05-28 03:31] LABS: HEMATOCRIT 20.9 % (42.0-52.0)
[2019-05-28 03:40] LABS: ALBUMIN 2.8 G/DL (3.4-5.0); ANION GAP 5 (8-16); BLOOD UREA NITROGEN 22 MG/DL (7-18); BUN/CREATININE RATIO 27.8 (5.4-32.0); CALCIUM 7.5 MG/DL (8.5-10.1); CHLORIDE 114 MMOL/L (99-107); CREATINE KINASE 763 U/L (39-308); CREATININE 0.79 MG/DL (0.60-1.10); GLUCOSE 151 MG/DL (70-104); MAGNESIUM 2.8 MG/DL (1.5-2.4); PHOSPHORUS 2.6 MG/DL (2.3-4.5); POTASSIUM 4.3 MMOL/L (3.5-5.1); SODIUM 145 MMOL/L (135-145); TOTAL CARBON DIOXIDE 26.1 MMOL/L (24-32); eGFR > 90 ML/MIN
[2019-05-28 04:01] LABS: ABG BASE EXCESS -0.5 mmol/L (-2.0-3.0); ABG HCO3 24.2 mmol/L (22.0-26.0); ABG OXYGEN SATURATION 90.8 % (95-98); ABG PCO2 (T) 39.4 mmHg (35.0-45.0); ABG PH (T) 7.405 (7.350-7.450); ABG PO2 (T) 66.1 mmHg (83-108); FCOHb 0.3 % (0.5-1.5); FO2Hb 90.5 % (94-100); MINUTE VOLUME 7 L/min; PATIENT TEMPERATURE 36.8; PEEP 5 cm H2O; RESPIRATORY RATE 10 b/min; RESPIRATORY RATE (OBSERVED) 10 b/min; TIDAL VOLUME 700 mL; TOTAL HEMOGLOBIN 7.8 G/dl (14.0-17.9)
[2019-05-28] MEDS: dexmedetomidin/NS 400mcg/100ml 100 ML IV SCH ×2 (05:05→21:55)
[2019-05-28] MEDS: DOPamine 400mg/D5W 250ml 250 ML IV PRN (05:06)
[2019-05-28] MEDS: insulin regular, human 100 UNIT in normal saline 100ml IV soln 99 ML IV SCH ×2 (05:30)
--- NOTE | 2019-05-28 06:15 | NUR ---
Patient in room ICU 2044. I have received report from caustic cresylate shift superintendent and had the opportunity to ask questions and assume patient care.
[2019-05-28] MEDS ORDERED: furosemide 40mg/4ml inj IV ONE (07:00)
[2019-05-28] MEDS: pantoprazole 40mg Tablet.DR PO SCH (07:30)
[2019-05-28] MEDS ORDERED: amiodarone 150mg/dext, iso-os 100 ML IV ONE ×2 (07:45→07:49)
[2019-05-28] MEDS: atorvastatin 10mg tablet PO SCH (08:00)
[2019-05-28] MEDS: clonazePAM 1mg tablet PO SCH ×3 (08:00→20:21)
[2019-05-28] MEDS: mupirocin 2% nasal ointment 1gm UD NS SCH (08:00)
[2019-05-28] MEDS: docusate sod 100mg capsule PO SCH ×2 (08:00→20:21)
[2019-05-28] MEDS: aspirin 325mg tablet, delayed-release (Ecotrin) PO SCH (08:00)
[2019-05-28] MEDS: Levetiracetam-NS 500mg/100ml 100 ML IV SCH ×2 (08:00→20:22)
[2019-05-28] MEDS: gabapentin 300mg capsule PO SCH ×2 (08:00→13:31)
[2019-05-28] MEDS: metoprolol tartrate 12.5mg (1/2 tablet) PO SCH ×2 (08:00→20:27)
[2019-05-28] MEDS: sertraline 50mg tablet PO SCH (08:00)
[2019-05-28 08:36] LABS: ABG HCO3 25.2 mmol/L (22.0-26.0); ABG OXYGEN SATURATION 94.9 % (95-98); ABG PCO2 (T) 43.2 mmHg (35.0-45.0); ABG PH (T) 7.382 (7.350-7.450); ABG PO2 (T) 80.7 mmHg (83-108); FCOHb 0.3 % (0.5-1.5); FMetHb 0.3 % (0.3-1.12); FO2Hb 94.3 % (94-100); MINUTE VOLUME 9 L/min; PATIENT TEMPERATURE 36.8; PEEP 5 cm H2O; RESPIRATORY RATE (OBSERVED) 18 b/min; TOTAL HEMOGLOBIN 8.2 G/dl (14.0-17.9)
[2019-05-28] MEDS: sodium chloride 0.45% 1,000 ML IV SCH ×2 (11:52→17:37)
--- NOTE | 2019-05-28 12:42 | NUR ---
F/U (05/28): Pt is extubated this am per bedside RN during rounds with active no concentrated sweet diet. Pending documentation of PO intake. Will continue to follow and provide CABG nutrition therapy education prior to discharge once stable. No documented BM but receiving routine Colace. Recommendations: 1.Continue no concentrated sweets diet with advancement to heart healthy as medically indicated 2.Bowel care routine 3.wt per rx 4.Nutrition therapy education prior to discharge once stable 5.Monitor needs for ONS with diet advancement r/t post CABG Addendum: 05/28/19 at [address] Amended: Links added. Addendum: 05/28/19 at [address] I have reviewed and agree with note by Nougat Cutter Machine. La Nena Fonseca RD
[2019-05-28 13:03] LABS: HEMATOCRIT 24.9 % (42.0-52.0); HEMOGLOBIN 8.4 g/dl (14.0-17.9); MEAN CORPUSCULAR HEMOGLOBIN 28.8 PG (27.0-31.0); MEAN CORPUSCULAR HGB CONC 33.9 g/dL (33.0-36.5); MEAN CORPUSCULAR VOLUME 84.9 FL (78-98); MEAN PLATELET VOLUME 8.2 FL (7.4-10.4); PLATELET COUNT 77 X10'3 (140-440); RED BLOOD COUNT 2.93 X10'6 (4.70-6.10); RED CELL DISTRIBUTION WIDTH 16.5 % (11.5-14.5); WHITE BLOOD COUNT 7.7 X10'3 (4.5-11.0)
[2019-05-28] MEDS ORDERED: iohexol 350MG/ML 100ml bottle IV ONE (14:31)
--- NOTE | 2019-05-28 18:10 | NUR ---
Problems reprioritized. Patient report given, questions answered & plan of care reviewed with oncoming shift.
--- NOTE | 2019-05-28 20:19 | NUR ---
I have reviewed and agree with all medications administered and interventions performed by DENTAL OFFICE COORDINATOR Student Paul Mas.
[2019-05-29] VITALS (23 sets, daily range): BP systolic 94–138; BP diastolic 52–87
[2019-05-29] MEDS: amiodarone/D5 360MG/200ML BAG 200 ML IV SCH ×2 (00:25→03:38)
[2019-05-29 03:31] LABS: BASOPHILS % (AUTO) 0.1 % (0-1); EOSINOPHILS % (AUTO) 0 % (0-6); HEMATOCRIT 22.6 % (42.0-52.0); HEMOGLOBIN 7.6 g/dl (14.0-17.9); LYMPHOCYTES # (AUTO) 0.7 X10'3 (1.1-4.8); LYMPHOCYTES % (AUTO) 10.2 % (21-51); MEAN CORPUSCULAR HEMOGLOBIN 28.8 PG (27.0-31.0); MEAN CORPUSCULAR HGB CONC 33.7 g/dL (33.0-36.5); MEAN CORPUSCULAR VOLUME 85.4 FL (78-98); MEAN PLATELET VOLUME 8.4 FL (7.4-10.4); MONOCYTES # (AUTO) 0.6 X10'3 (0-0.9); MONOCYTES % (AUTO) 8.2 % (2-12); NEUTROPHILS # (AUTO) 5.7 X10'3 (1.8-7.7); NEUTROPHILS % (AUTO) 81.5 % (42-75); PLATELET COUNT 75 X10'3 (140-440); RED BLOOD COUNT 2.64 X10'6 (4.70-6.10); RED CELL DISTRIBUTION WIDTH 16.4 % (11.5-14.5)
[2019-05-29 04:09] LABS: ALBUMIN 2.8 G/DL (3.4-5.0); ANION GAP 7 (8-16); BLOOD UREA NITROGEN 23 MG/DL (7-18); BUN/CREATININE RATIO 28.8 (5.4-32.0); CALCIUM 7.6 MG/DL (8.5-10.1); CHLORIDE 110 MMOL/L (99-107); GLUCOSE 107 MG/DL (70-104); MAGNESIUM 2.4 MG/DL (1.5-2.4); PHOSPHORUS 2.4 MG/DL (2.3-4.5); POTASSIUM 4.1 MMOL/L (3.5-5.1); SODIUM 145 MMOL/L (135-145); eGFR > 90 ML/MIN
[2019-05-29] MEDS: insulin regular, human 100 UNIT in normal saline 100ml IV soln 99 ML IV SCH ×2 (05:30)
--- NOTE | 2019-05-29 06:15 | NUR ---
Patient in room ICU 2044. I have received report from LABOR OPERATOR and had the opportunity to ask questions and assume patient care.
[2019-05-29] MEDS: dexmedetomidin/NS 400mcg/100ml 100 ML IV SCH (08:11)
[2019-05-29] MEDS: Levetiracetam-NS 500mg/100ml 100 ML IV SCH ×2 (08:45→20:12)
[2019-05-29] MEDS: clonazePAM 1mg tablet PO SCH ×3 (08:45→20:11)
[2019-05-29] MEDS: atorvastatin 10mg tablet PO SCH (08:46)
[2019-05-29] MEDS: pantoprazole 40mg Tablet.DR PO SCH (08:46)
[2019-05-29] MEDS: metoprolol tartrate 12.5mg (1/2 tablet) PO SCH (08:46)
[2019-05-29] MEDS: aspirin 325mg tablet, delayed-release (Ecotrin) PO SCH (08:46)
[2019-05-29] MEDS: docusate sod 100mg capsule PO SCH ×2 (08:46→20:11)
[2019-05-29] MEDS: sertraline 50mg tablet PO SCH (08:46)
[2019-05-29] MEDS ORDERED: furosemide 40mg/4ml inj IV ONE (09:25)
[2019-05-29] MEDS ORDERED: metoprolol tartrate 12.5mg (1/2 tablet) PO ONE (09:55)
[2019-05-29] MEDS ORDERED: flecainide 50mg tablet PO ONE (09:55)
[2019-05-29] MEDS: potassium Cl 20mEq/100mL bag 100 ML IV PRN ×2 (14:57→16:03)
[2019-05-29] MEDS: sodium chloride 0.45% 1,000 ML IV SCH (18:01)
--- NOTE | 2019-05-29 18:09 | NUR ---
Problems reprioritized. Patient report given, questions answered & plan of care reviewed with ONCOMING SHIFT.
--- NOTE | 2019-05-29 18:30 | NUR ---
Patient in room ICU 2044. I have received report from PHYLLIS Holder and had the opportunity to ask questions and assume patient care.
[2019-05-29] MEDS: metoprolol tartrate 25mg tablet PO SCH (20:11)
[2019-05-29] MEDS: flecainide 50mg tablet PO SCH (20:11)
[2019-05-29] MEDS: morphine 4 MG/ML inj SYRINge IV PRN (23:31)
--- NOTE | 2019-05-29 23:33 | NUR ---
[facility] successfully replaced with assistance of charge nurse without any complications.
[2019-05-30] VITALS (25 sets, daily range): BP systolic 72–132; BP diastolic 53–91
[2019-05-30 01:05] LABS: BASOPHILS % (AUTO) 0.1 % (0-1); EOSINOPHILS % (AUTO) 0.3 % (0-6); HEMATOCRIT 25.1 % (42.0-52.0); HEMOGLOBIN 8.2 g/dl (14.0-17.9); LYMPHOCYTES # (AUTO) 0.8 X10'3 (1.1-4.8); LYMPHOCYTES % (AUTO) 9.3 % (21-51); MEAN CORPUSCULAR HEMOGLOBIN 28.2 PG (27.0-31.0); MEAN CORPUSCULAR HGB CONC 32.8 g/dL (33.0-36.5); MEAN CORPUSCULAR VOLUME 85.9 FL (78-98); MEAN PLATELET VOLUME 8.6 FL (7.4-10.4); MONOCYTES # (AUTO) 0.6 X10'3 (0-0.9); MONOCYTES % (AUTO) 7.1 % (2-12); NEUTROPHILS # (AUTO) 7.5 X10'3 (1.8-7.7); NEUTROPHILS % (AUTO) 83.2 % (42-75); PLATELET COUNT 105 X10'3 (140-440); RED BLOOD COUNT 2.92 X10'6 (4.70-6.10); RED CELL DISTRIBUTION WIDTH 16.5 % (11.5-14.5)
[2019-05-30 01:27] LABS: ALBUMIN 2.9 G/DL (3.4-5.0); ANION GAP 2 (8-16); BLOOD UREA NITROGEN 26 MG/DL (7-18); BUN/CREATININE RATIO 32.1 (5.4-32.0); CALCIUM 7.9 MG/DL (8.5-10.1); CHLORIDE 107 MMOL/L (99-107); CREATININE 0.81 MG/DL (0.60-1.10); GLUCOSE 143 MG/DL (70-104); MAGNESIUM 2.5 MG/DL (1.5-2.4); PHOSPHORUS 2.8 MG/DL (2.3-4.5); POTASSIUM 4.6 MMOL/L (3.5-5.1); SODIUM 140 MMOL/L (135-145); TOTAL CARBON DIOXIDE 30.7 MMOL/L (24-32); eGFR > 90 ML/MIN
[2019-05-30] MEDS: insulin regular, human 100 UNIT in normal saline 100ml IV soln 99 ML IV SCH ×2 (05:30)
--- NOTE | 2019-05-30 06:32 | NUR ---
Problems reprioritized. Patient report given, questions answered & plan of care reviewed with PHYLLIS Laureano.
[2019-05-30] MEDS: furosemide 40mg/4ml inj IV SCH (08:04)
[2019-05-30] MEDS: atorvastatin 10mg tablet PO SCH (08:05)
[2019-05-30] MEDS: metoprolol tartrate 25mg tablet PO SCH ×2 (08:05→18:56)
[2019-05-30] MEDS: Levetiracetam-NS 500mg/100ml 100 ML IV SCH ×2 (08:05→21:29)
[2019-05-30] MEDS: flecainide 50mg tablet PO SCH ×2 (08:05→18:56)
[2019-05-30] MEDS: docusate sod 100mg capsule PO SCH ×2 (08:05→21:29)
[2019-05-30] MEDS: aspirin 81mg tablet.DR PO SCH (08:05)
[2019-05-30] MEDS: pantoprazole 40mg Tablet.DR PO SCH (08:05)
[2019-05-30] MEDS ORDERED: magnesium citrate 296ml oral solution PO ONE (09:35)
--- NOTE | 2019-05-30 12:50 | NUR ---
Reassessment: Pt/family seen by ROSE for written/verbal CABG ed w/ RD contact information provided. Pt agreeable to chocolate ensure enlive TIDWM; MD notified. Pending MD verification prior to sending on trays. No BM yet 4 days since admit receiving colace and MoM yesterday. Will continue to monitor. Recommendations: 1.Continue no concentrated sweets diet with advancement to heart healthy as medically indicated 2. routine bowel care 3. chocolate ensure enlive TIDWM; pend MD verification prior to sending 4. wt per rx Addendum: 05/30/19 at [address] Amended: Links added.
[2019-05-30] MEDS: lactose-reduced food (Ensure Enlive) - 237ml bottle PO SCH ×2 (13:00→18:00)
--- NOTE | 2019-05-30 18:25 | NUR ---
Patient in room ICU 2044. I have received report from PHYLLIS Shepard and had the opportunity to ask questions and assume patient care. Patient HR is in 150's at the moment. Will call dr. Hall Addendum: 05/30/19 at 2144 by Selvin Brandon RN Per Dr. Clay: Administered heart meds schedule for 1999 now.
[2019-05-30] MEDS: acetaminophen 325mg tablet PO PRN (18:46)
[2019-05-30] MEDS: clonazePAM 1mg tablet PO SCH (21:29)
[2019-05-31] VITALS (24 sets, daily range): BP systolic 93–146; BP diastolic 63–86
[2019-05-31 03:21] LABS: BASOPHILS % (AUTO) 0 % (0-1); EOSINOPHILS # (AUTO) 0.2 X10'3 (0-0.9); EOSINOPHILS % (AUTO) 1.7 % (0-6); HEMATOCRIT 25.7 % (42.0-52.0); HEMOGLOBIN 8.5 g/dl (14.0-17.9); LYMPHOCYTES # (AUTO) 1.5 X10'3 (1.1-4.8); LYMPHOCYTES % (AUTO) 16.5 % (21-51); MEAN CORPUSCULAR HEMOGLOBIN 28.6 PG (27.0-31.0); MEAN CORPUSCULAR HGB CONC 32.9 g/dL (33.0-36.5); MEAN CORPUSCULAR VOLUME 86.8 FL (78-98); MEAN PLATELET VOLUME 8.3 FL (7.4-10.4); MONOCYTES # (AUTO) 0.8 X10'3 (0-0.9); NEUTROPHILS # (AUTO) 6.5 X10'3 (1.8-7.7); NEUTROPHILS % (AUTO) 72.8 % (42-75); PLATELET COUNT 152 X10'3 (140-440); RED BLOOD COUNT 2.97 X10'6 (4.70-6.10); RED CELL DISTRIBUTION WIDTH 16.4 % (11.5-14.5)
[2019-05-31 03:26] LABS: ALBUMIN 2.9 G/DL (3.4-5.0); ANION GAP 6 (8-16); CALCIUM 7.8 MG/DL (8.5-10.1); CHLORIDE 107 MMOL/L (99-107); CREATININE 0.75 MG/DL (0.60-1.10); GLUCOSE 120 MG/DL (70-104); SODIUM 143 MMOL/L (135-145); TOTAL CARBON DIOXIDE 30.4 MMOL/L (24-32); eGFR > 90 ML/MIN
[2019-05-31 03:40] LABS: BLOOD UREA NITROGEN 25 MG/DL (7-18); BUN/CREATININE RATIO 33.3 (5.4-32.0)
[2019-05-31] MEDS: potassium Cl 20mEq/100mL bag 100 ML IV PRN (04:51)
[2019-05-31 05:13] LABS: MAGNESIUM 2.2 MG/DL (1.5-2.4); PHOSPHORUS 2.3 MG/DL (2.3-4.5)
--- NOTE | 2019-05-31 06:20 | NUR ---
Problems reprioritized. Patient report given, questions answered & plan of care reviewed with [place] FERGUSON.
[2019-05-31] MEDS ORDERED: midazolam 2 mg/2 ml injection ONE (06:51)
[2019-05-31] MEDS: morphine 4 MG/ML inj SYRINge IV PRN (07:05)
--- NOTE | 2019-05-31 07:06 | NUR ---
patient cardioverted. Patient received 2mg morphine and 2mg Versed per Dr Nichols. I forget to scan morphine after wasting with second RN and disposing of vial in sharps.
[2019-05-31] MEDS: pantoprazole 40mg Tablet.DR PO SCH (07:36)
[2019-05-31] MEDS: lactose-reduced food (Ensure Enlive) - 237ml bottle PO SCH ×3 (08:00→18:06)
[2019-05-31] MEDS: docusate sod 100mg capsule PO SCH ×2 (08:11→20:48)
[2019-05-31] MEDS: flecainide 50mg tablet PO SCH ×2 (08:11→20:49)
[2019-05-31] MEDS: furosemide 40mg/4ml inj IV SCH (08:11)
[2019-05-31] MEDS: atorvastatin 10mg tablet PO SCH (08:11)
[2019-05-31] MEDS: aspirin 81mg tablet.DR PO SCH (08:11)
[2019-05-31] MEDS: metoprolol tartrate 25mg tablet PO SCH ×2 (08:11→20:49)
[2019-05-31] MEDS: Levetiracetam-NS 500mg/100ml 100 ML IV SCH ×2 (08:25→20:48)
[2019-05-31 10:21] LABS: ABG BASE EXCESS -2.1 mmol/L (-2.0-3.0); ABG HCO3 24.6 mmol/L (22.0-26.0); ABG OXYGEN SATURATION 99.4 % (95-98); ABG PCO2 51.1 mmHg (35.0-45.0); ABG PO2 > 601.0 mmHg (60.0-100.0); CL (ABG) 103 mmol/L (99-107); FCOHb 0.3 % (0.5-1.5); FMetHb 0.5 % (0.3-1.12); FO2Hb 98.6 % (94-100); GLUCOSE (ABG) 213 mg/dl (70-104); IONIZED CA (ABG) 1.15 mmol/L (1.03-1.32); K (ABG) 3.3 mmol/L (3.3-5.1); NA (ABG) 138 mmol/L (135-145); TOTAL HEMOGLOBIN 10.2 G/dl (14.0-17.9)
[2019-05-31 10:51] LABS: ABG BASE EXCESS -3.1 mmol/L (-2.0-3.0); ABG HCO3 16.3 mmol/L (22.0-26.0); ABG OXYGEN SATURATION 99.1 % (95-98); ABG PO2 184.7 mmHg (60.0-100.0); CL (ABG) 105 mmol/L (99-107); FCOHb 0.3 % (0.5-1.5); FO2Hb 98.8 % (94-100); GLUCOSE (ABG) 160 mg/dl (70-104); IONIZED CA (ABG) 1.16 mmol/L (1.03-1.32); K (ABG) 4.6 mmol/L (3.3-5.1); NA (ABG) 135 mmol/L (135-145); TOTAL HEMOGLOBIN 10.7 G/dl (14.0-17.9)
[2019-05-31 10:58] LABS: ABG PCO2 16.6 mmHg (35.0-45.0)
--- NOTE | 2019-05-31 18:25 | NUR ---
Problems reprioritized. Patient report given, questions answered & plan of care reviewed with PHYLLIS Garcia.
--- NOTE | 2019-05-31 18:30 | NUR ---
Patient in room ICU 2044. I have received report from PHYLLIS Boyle and had the opportunity to ask questions and assume patient care. Pt resting in bed sitting up, finishing dinner. No distress.
--- NOTE | 2019-05-31 19:42 | NUR ---
Pt assisted onto bedpan to have a BM.
--- NOTE | 2019-05-31 20:37 | NUR ---
Patient reports his catheter is really painful and bothering him, I deflated the balloon and reinflated it to see if that would help and it didn't. I removed his catheter and replaced it with a condom catheter and explained how this works, if he feels the urge to pee he needs to go with the urge just like normal urination. I will continue to monitor.
--- NOTE | 2019-05-31 20:46 | NUR ---
Patient's reports he is feeling depressed and anxious and has asked her to stay with him tonight, I advised her that would be fine.
[2019-05-31] MEDS: clonazePAM 1mg tablet PO SCH (20:50)
[2019-06-01] VITALS (15 sets, daily range): BP systolic 108–147; BP diastolic 71–99
[2019-06-01 04:45] LABS: MAGNESIUM 1.8 MG/DL (1.5-2.4); PHOSPHORUS 2.7 MG/DL (2.3-4.5); POTASSIUM 3.8 MMOL/L (3.5-5.1)
--- NOTE | 2019-06-01 06:30 | NUR ---
Problems reprioritized. Patient report given, questions answered & plan of care reviewed with Adriana/PHYLLIS Dawson.
--- NOTE | 2019-06-01 06:31 | NUR ---
Problems reprioritized. Patient report given, questions answered & plan of care reviewed with Madiha RN.
--- NOTE | 2019-06-01 07:08 | NUR ---
Patient in room ICU 2044. I have received report from Kami RN and Nicole RN and had the opportunity to ask questions and assume patient care.
[2019-06-01 07:24] LABS: ALBUMIN 2.8 G/DL (3.4-5.0); ANION GAP 8 (8-16); BLOOD UREA NITROGEN 21 MG/DL (7-18); CHLORIDE 106 MMOL/L (99-107); CREATININE 0.84 MG/DL (0.60-1.10); GLUCOSE 119 MG/DL (70-104); SODIUM 142 MMOL/L (135-145); TOTAL CARBON DIOXIDE 28.4 MMOL/L (24-32); eGFR 90 ML/MIN
[2019-06-01 07:29] LABS: BASOPHILS % (AUTO) 0.2 % (0-1); EOSINOPHILS # (AUTO) 0.2 X10'3 (0-0.9); EOSINOPHILS % (AUTO) 2.3 % (0-6); HEMATOCRIT 25.6 % (42.0-52.0); HEMOGLOBIN 8.6 g/dl (14.0-17.9); LYMPHOCYTES # (AUTO) 1.5 X10'3 (1.1-4.8); LYMPHOCYTES % (AUTO) 14.7 % (21-51); MEAN CORPUSCULAR HGB CONC 33.6 g/dL (33.0-36.5); MEAN CORPUSCULAR VOLUME 86.2 FL (78-98); MEAN PLATELET VOLUME 8.1 FL (7.4-10.4); MONOCYTES # (AUTO) 0.9 X10'3 (0-0.9); MONOCYTES % (AUTO) 8.5 % (2-12); NEUTROPHILS # (AUTO) 7.6 X10'3 (1.8-7.7); NEUTROPHILS % (AUTO) 74.3 % (42-75); PLATELET COUNT 197 X10'3 (140-440); RED BLOOD COUNT 2.97 X10'6 (4.70-6.10); WHITE BLOOD COUNT 10.3 X10'3 (4.5-11.0)
[2019-06-01] MEDS: sodium chloride 0.45% 1,000 ML IV SCH (07:30)
[2019-06-01] MEDS: pantoprazole 40mg Tablet.DR PO SCH (07:38)
[2019-06-01] MEDS: flecainide 50mg tablet PO SCH ×2 (07:38→21:31)
[2019-06-01] MEDS: aspirin 81mg tablet.DR PO SCH (07:38)
[2019-06-01] MEDS: furosemide 40mg/4ml inj IV SCH (07:38)
[2019-06-01] MEDS: atorvastatin 10mg tablet PO SCH (07:38)
[2019-06-01] MEDS: docusate sod 100mg capsule PO SCH ×2 (07:38→21:31)
[2019-06-01] MEDS: metoprolol tartrate 25mg tablet PO SCH ×2 (07:38→21:32)
[2019-06-01] MEDS: lactose-reduced food (Ensure Enlive) - 237ml bottle PO SCH ×3 (08:00→18:00)
[2019-06-01] MEDS ORDERED: magnesium 2GM in 50ml NS 50 ML IV PRN (08:10)
[2019-06-01] MEDS ORDERED: potassium Cl 20mEq/100mL bag 100 ML IV PRN (08:10)
[2019-06-01] MEDS ORDERED: magnesium citrate 296ml oral solution PO ONE (08:10)
[2019-06-01] MEDS: magnesium 4gm in 100ml NS 100 ML IV PRN (08:56)
[2019-06-01] MEDS: potassium Cl 20 mEq SR tablet PO PRN (08:56)
[2019-06-01] MEDS: lisinopril 10 MG tablet PO SCH (09:21)
[2019-06-01] MEDS: sertraline 50mg tablet PO SCH (09:21)
--- NOTE | 2019-06-01 10:51 | NUR ---
Problems reprioritized. Patient report given, questions answered & plan of care reviewed with ACCE RN.
--- NOTE | 2019-06-01 10:55 | NUR ---
I have received report from the SENIOR SECURITY ANALYST and had the opportunity to ask questions. Awaiting pt's arrival to the ACCE unit
--- NOTE | 2019-06-01 11:40 | NUR ---
Patient has been transported by Adriana RN and Eunice FERGUSON via wheel chair to room 314. Patient was able to ambulate with a 2 person assist into the bed. Patient did become SOB upon exertion, and displayed some left side weakness. Patient 2 RN skin check has been completed. Patient did come up with an adult diaper on per his request for leakage. Patient has both pacer wires present and isolated. Patient has a dressing in place that is leaking from the CT sites. New bandage and gauze dressing have been applied. Patients physical assessment and v/s have been completed at this time. Patient has been placed on the monitor. Patient and have been oriented to the room, call light use, given ice water, and all questions have been answered at this time. Will continue to monitor patient.
--- NOTE | 2019-06-01 14:45 | NUR ---
F/U (06/01): Pt is having better appetite with an avg. po intake of about 50-75%. Pt is drinking the Ensure provided at meals documented with 100%. LBM 05/30. Will continue to monitor and encourage po intake. Recommendations: 1.Continue heart healthy diet and ONS (Chocolate ensure enlive TIDWM) 2.Routine bowel care 3.wt per rx Addendum: 06/01/19 at [address] Amended: Links added. Addendum: 06/02/19 at [address] RD agree with note
--- NOTE | 2019-06-01 17:15 | NUR ---
[place] documentation: I have reviewed and agree with all interventions, assessments performed and documented by Vicky FERGUSON. [place] Medication Administration: For this medication-pass time frame, all medication were reviewed, dispensed, administered and documented per hospital policy by Vicky FERGUSON.
--- NOTE | 2019-06-01 18:13 | NUR ---
Problems reprioritized. Patient report given, questions answered & plan of care reviewed with Silvia FERGUSON and PHYLLIS Shaw .
--- NOTE | 2019-06-01 19:00 | NUR ---
Patient family brought food. Patient had a burrito for dinner.
--- NOTE | 2019-06-01 21:25 | NUR ---
Called Valentino Roman and left a message regarding the patient having an eight run beats of V. Tach. Waiting for call back.
[2019-06-01] MEDS: potassium Cl 20 mEq SR tablet PO SCH (21:31)
[2019-06-01] MEDS: magnesium Cl slow-release 64mg tablet PO SCH (21:32)
[2019-06-01] MEDS: clonazePAM 1mg tablet PO SCH (21:33)
[2019-06-02 02:00] VITALS: BP 105/66
[2019-06-02 05:32] LABS: BASOPHILS % (AUTO) 0.3 % (0-1); EOSINOPHILS # (AUTO) 0.2 X10'3 (0-0.9); HEMATOCRIT 27.9 % (42.0-52.0); HEMOGLOBIN 9.4 g/dl (14.0-17.9); LYMPHOCYTES # (AUTO) 1.5 X10'3 (1.1-4.8); MEAN CORPUSCULAR HEMOGLOBIN 28.9 PG (27.0-31.0); MEAN CORPUSCULAR HGB CONC 33.6 g/dL (33.0-36.5); MEAN CORPUSCULAR VOLUME 86.1 FL (78-98); MEAN PLATELET VOLUME 7.5 FL (7.4-10.4); MONOCYTES # (AUTO) 0.8 X10'3 (0-0.9); MONOCYTES % (AUTO) 9.5 % (2-12); NEUTROPHILS % (AUTO) 70.2 % (42-75); PLATELET COUNT 242 X10'3 (140-440); RED BLOOD COUNT 3.24 X10'6 (4.70-6.10); RED CELL DISTRIBUTION WIDTH 16.3 % (11.5-14.5); WHITE BLOOD COUNT 8.5 X10'3 (4.5-11.0)
[2019-06-02 05:49] LABS: ALBUMIN 2.7 G/DL (3.4-5.0); ANION GAP 6 (8-16); BLOOD UREA NITROGEN 22 MG/DL (7-18); BUN/CREATININE RATIO 28.6 (5.4-32.0); CALCIUM 8.3 MG/DL (8.5-10.1); CHLORIDE 108 MMOL/L (99-107); CREATININE 0.77 MG/DL (0.60-1.10); GLUCOSE 114 MG/DL (70-104); MAGNESIUM 1.8 MG/DL (1.5-2.4); POTASSIUM 4.3 MMOL/L (3.5-5.1); SODIUM 143 MMOL/L (135-145); TOTAL CARBON DIOXIDE 29.2 MMOL/L (24-32); eGFR > 90 ML/MIN
[2019-06-02 06:00] VITALS: BP 114/68
--- NOTE | 2019-06-02 06:10 | NUR ---
Patient in room MED 308. I have received report from PHYLLIS Vega and had the opportunity to ask questions and assume patient care.
--- NOTE | 2019-06-02 06:37 | NUR ---
Problems reprioritized. Patient report given, questions answered & plan of care reviewed with Kay RN and PHYLLIS Dawson (orienteer)
[2019-06-02] MEDS ORDERED: furosemide 40mg tablet PO SCH (08:00)
[2019-06-02] MEDS: lactose-reduced food (Ensure Enlive) - 237ml bottle PO SCH ×3 (08:00→18:06)
[2019-06-02] MEDS: magnesium Cl slow-release 64mg tablet PO SCH ×2 (09:31→20:45)
[2019-06-02] MEDS: sertraline 50mg tablet PO SCH (09:31)
[2019-06-02] MEDS: docusate sod 100mg capsule PO SCH ×2 (09:31→20:44)
[2019-06-02] MEDS: potassium Cl 20 mEq SR tablet PO SCH ×2 (09:31→20:44)
[2019-06-02] MEDS: flecainide 50mg tablet PO SCH ×2 (09:35→20:45)
[2019-06-02] MEDS: pantoprazole 40mg Tablet.DR PO SCH (09:35)
[2019-06-02] MEDS: lisinopril 10 MG tablet PO SCH ×2 (09:35→20:45)
[2019-06-02] MEDS: metoprolol tartrate 25mg tablet PO SCH ×2 (09:35→20:46)
[2019-06-02] MEDS: aspirin 81mg tablet.DR PO SCH (09:36)
[2019-06-02] MEDS: atorvastatin 10mg tablet PO SCH (09:36)
[2019-06-02] MEDS: magnesium 4gm in 100ml NS 100 ML IV PRN (09:42)
[2019-06-02 11:00] VITALS: BP 115/70
[2019-06-02 15:00] VITALS: BP 114/64
--- NOTE | 2019-06-02 16:19 | NUR ---
Spoke with TRINO Avelar and Dr. Nichols regarding patient's frustration with urinary incontinence post CABG. New orders have been placed to lower dose of Lasix and added Flomax. Communicated this with patient and spouse.
--- NOTE | 2019-06-02 17:29 | NUR ---
I have reviewed and agree with all interventions, assessments performed and documented by PHYLLIS Dawson.
[2019-06-02 18:00] VITALS: BP 106/71
--- NOTE | 2019-06-02 18:20 | NUR ---
Problems reprioritized. Patient report given, questions answered & plan of care reviewed with PHYLLIS Vega.
[2019-06-02] MEDS: tamsulosin 0.4mg capsule PO SCH (20:43)
[2019-06-02] MEDS: clonazePAM 0.5mg tablet PO SCH (20:45)
[2019-06-02 22:00] VITALS: BP 106/62
[2019-06-03 02:00] VITALS: BP 94/67
[2019-06-03 05:41] LABS: BASOPHILS % (AUTO) 0.4 % (0-1); EOSINOPHILS # (AUTO) 0.1 X10'3 (0-0.9); EOSINOPHILS % (AUTO) 1.7 % (0-6); HEMATOCRIT 27.3 % (42.0-52.0); LYMPHOCYTES # (AUTO) 1.5 X10'3 (1.1-4.8); LYMPHOCYTES % (AUTO) 17.9 % (21-51); MEAN CORPUSCULAR HEMOGLOBIN 28.6 PG (27.0-31.0); MEAN CORPUSCULAR VOLUME 86.5 FL (78-98); MEAN PLATELET VOLUME 7.5 FL (7.4-10.4); MONOCYTES % (AUTO) 11.7 % (2-12); NEUTROPHILS # (AUTO) 5.8 X10'3 (1.8-7.7); NEUTROPHILS % (AUTO) 68.3 % (42-75); PLATELET COUNT 256 X10'3 (140-440); RED BLOOD COUNT 3.16 X10'6 (4.70-6.10); RED CELL DISTRIBUTION WIDTH 16.2 % (11.5-14.5); WHITE BLOOD COUNT 8.5 X10'3 (4.5-11.0)
--- NOTE | 2019-06-03 05:51 | NUR ---
[place] documentation: I have reviewed and agree with all interventions, assessments performed and documented by Valeria Alonzo RN.
[2019-06-03 05:57] LABS: ALBUMIN 2.8 G/DL (3.4-5.0); ANION GAP 5 (8-16); BLOOD UREA NITROGEN 19 MG/DL (7-18); BUN/CREATININE RATIO 25.7 (5.4-32.0); CALCIUM 8.3 MG/DL (8.5-10.1); CHLORIDE 107 MMOL/L (99-107); CREATININE 0.74 MG/DL (0.60-1.10); GLUCOSE 130 MG/DL (70-104); POTASSIUM 4.1 MMOL/L (3.5-5.1); SODIUM 140 MMOL/L (135-145); eGFR > 90 ML/MIN
[2019-06-03 06:00] VITALS: BP 112/56
--- NOTE | 2019-06-03 06:14 | NUR ---
Gave report to Carolann-PHYLLIS. Answered all the questions.
--- NOTE | 2019-06-03 06:14 | NUR ---
Patient in room MED 314. I have received report from PHYLLIS Shaw and had the opportunity to ask questions and assume patient care.
[2019-06-03 07:18] LABS: MAGNESIUM 1.9 MG/DL (1.5-2.4)
[2019-06-03] MEDS: metoprolol tartrate 25mg tablet PO SCH ×2 (08:00→20:22)
[2019-06-03] MEDS ORDERED: furosemide 20MG tablet PO SCH (08:00)
[2019-06-03] MEDS: aspirin 81mg tablet.DR PO SCH (08:09)
[2019-06-03] MEDS: atorvastatin 10mg tablet PO SCH (08:09)
[2019-06-03] MEDS: potassium Cl 20 mEq SR tablet PO SCH ×2 (08:09→20:23)
[2019-06-03] MEDS: sertraline 50mg tablet PO SCH (08:11)
[2019-06-03] MEDS: docusate sod 100mg capsule PO SCH ×2 (08:11→20:23)
[2019-06-03] MEDS: flecainide 50mg tablet PO SCH ×2 (08:11→20:22)
[2019-06-03] MEDS: potassium Cl 20 mEq SR tablet PO PRN (08:12)
[2019-06-03] MEDS: pantoprazole 40mg Tablet.DR PO SCH (08:12)
[2019-06-03] MEDS: magnesium Cl slow-release 64mg tablet PO SCH ×2 (08:12→20:23)
[2019-06-03] MEDS: magnesium 4gm in 100ml NS 100 ML IV PRN (08:13)
[2019-06-03] MEDS: lactose-reduced food (Ensure Enlive) - 237ml bottle PO SCH ×3 (08:50→18:00)
[2019-06-03 11:00] VITALS: BP 102/52
[2019-06-03 15:00] VITALS: BP 106/62
[2019-06-03] MEDS ORDERED: clonazePAM 1mg tablet PO ONE (17:10)
[2019-06-03 18:00] VITALS: BP 109/70
--- NOTE | 2019-06-03 18:24 | NUR ---
Problems reprioritized. Patient report given, questions answered & plan of care reviewed with PHYLLIS Duke.
[2019-06-03] MEDS: clonazePAM 0.5mg tablet PO SCH (20:23)
[2019-06-03] MEDS: lisinopril 10 MG tablet PO SCH (20:23)
[2019-06-03] MEDS: tamsulosin 0.4mg capsule PO SCH (20:28)
[2019-06-03 22:00] VITALS: BP 108/63
[2019-06-04 02:00] VITALS: BP 91/49
[2019-06-04 02:30] LABS: BASOPHILS # (AUTO) 0.1 X10'3 (0-0.2); BASOPHILS % (AUTO) 0.9 % (0-1); EOSINOPHILS # (AUTO) 0.1 X10'3 (0-0.9); EOSINOPHILS % (AUTO) 1.2 % (0-6); HEMATOCRIT 27.3 % (42.0-52.0); HEMOGLOBIN 9.1 g/dl (14.0-17.9); LYMPHOCYTES # (AUTO) 1.3 X10'3 (1.1-4.8); LYMPHOCYTES % (AUTO) 14.1 % (21-51); MEAN CORPUSCULAR HEMOGLOBIN 28.6 PG (27.0-31.0); MEAN CORPUSCULAR HGB CONC 33.4 g/dL (33.0-36.5); MEAN CORPUSCULAR VOLUME 85.9 FL (78-98); MEAN PLATELET VOLUME 7.3 FL (7.4-10.4); MONOCYTES # (AUTO) 0.9 X10'3 (0-0.9); MONOCYTES % (AUTO) 9.7 % (2-12); NEUTROPHILS # (AUTO) 6.6 X10'3 (1.8-7.7); NEUTROPHILS % (AUTO) 74.1 % (42-75); PLATELET COUNT 276 X10'3 (140-440); RED BLOOD COUNT 3.18 X10'6 (4.70-6.10); RED CELL DISTRIBUTION WIDTH 16.5 % (11.5-14.5)
[2019-06-04 02:38] LABS: ALBUMIN 2.8 G/DL (3.4-5.0); ANION GAP 5 (8-16); BLOOD UREA NITROGEN 19 MG/DL (7-18); BUN/CREATININE RATIO 21.1 (5.4-32.0); CHLORIDE 105 MMOL/L (99-107); GLUCOSE 125 MG/DL (70-104); POTASSIUM 4.7 MMOL/L (3.5-5.1); SODIUM 139 MMOL/L (135-145); TOTAL CARBON DIOXIDE 28.6 MMOL/L (24-32); eGFR 83 ML/MIN
[2019-06-04 02:56] LABS: MAGNESIUM 1.9 MG/DL (1.5-2.4)
[2019-06-04 06:00] VITALS: BP 120/51
--- NOTE | 2019-06-04 06:27 | NUR ---
Problems reprioritized. Patient report given, questions answered & plan of care reviewed with Dianna FERGUSON.
[2019-06-04] MEDS: potassium Cl 20 mEq SR tablet PO SCH (08:00)
[2019-06-04] MEDS: lactose-reduced food (Ensure Enlive) - 237ml bottle PO SCH ×2 (08:00→13:49)
[2019-06-04] MEDS: magnesium Cl slow-release 64mg tablet PO SCH (08:39)
[2019-06-04] MEDS: aspirin 81mg tablet.DR PO SCH (08:39)
[2019-06-04] MEDS: atorvastatin 10mg tablet PO SCH (08:39)
[2019-06-04] MEDS: flecainide 50mg tablet PO SCH (08:39)
[2019-06-04] MEDS: pantoprazole 40mg Tablet.DR PO SCH (08:40)
[2019-06-04] MEDS: docusate sod 100mg capsule PO SCH (08:40)
[2019-06-04] MEDS: metoprolol tartrate 25mg tablet PO SCH (08:40)
[2019-06-04] MEDS: sertraline 50mg tablet PO SCH (08:40)
[2019-06-04] MEDS: magnesium 4gm in 100ml NS 100 ML IV PRN (08:45)
[2019-06-04 11:00] VITALS: BP 113/80
--- NOTE | 2019-06-04 15:10 | NUR ---
Patient stable for transfer per MD orders. All discharge/transfer instructions reviewed with patient and his , verbalized understanding. PIV discontinued, cannula intact, clean, dry, dressing intact. Telemetry montior removed. All personal belongings collected and sent with patient's , per patient request. [facility] personnel wheeled patient out of facility at 1510.
--- NOTE | 2019-06-04 15:26 | NUR ---
called report to Leticia Lovelacequis.
== END 2019-06-04 15:05 | DRG 219 ==
LOC: PAS IN 05:31 → EDSTATUS 08:30 → ICU 2S 13:16 → MED 3N 06-01 11:40
PROVIDERS: ADMIT Thoracic Surgery (Cardiothoracic Vascular Surgery); ATTEND Thoracic Surgery (Cardiothoracic Vascular Surgery)
PROC: 02100Z9 Bypass Coronary Artery, One Artery from Left Internal Mammary, Open Approach (ICD-10-PCS; 2019-05-26)
PROC: 021009W Bypass Coronary Artery, One Artery from Aorta with Autologous Venous Tissue, Open Approach (ICD-10-PCS; 2019-05-26)
PROC: 06BP4ZZ Excision of Right Saphenous Vein, Percutaneous Endoscopic Approach (ICD-10-PCS; 2019-05-26)
PROC: 30233K1 Transfusion of Nonautologous Frozen Plasma into Peripheral Vein, Percutaneous Approach (ICD-10-PCS; 2019-05-26)
PROC: 30233N1 Transfusion of Nonautologous Red Blood Cells into Peripheral Vein, Percutaneous Approach (ICD-10-PCS; 2019-05-26)
PROC: 30233R1 Transfusion of Nonautologous Platelets into Peripheral Vein, Percutaneous Approach (ICD-10-PCS; 2019-05-26)
PROC: 30233M1 Transfusion of Nonautologous Plasma Cryoprecipitate into Peripheral Vein, Percutaneous Approach (ICD-10-PCS; 2019-05-26)
PROC: 4A133B3 Monitoring of Arterial Pressure, Pulmonary, Percutaneous Approach (ICD-10-PCS; 2019-05-26)
PROC: 02HP32Z Insertion of Monitoring Device into Pulmonary Trunk, Percutaneous Approach (ICD-10-PCS; 2019-05-26)
PROC: 02HV33Z Insertion of Infusion Device into Superior Vena Cava, Percutaneous Approach (ICD-10-PCS; 2019-05-26)
PROC: B548ZZA Ultrasonography of Superior Vena Cava, Guidance (ICD-10-PCS; 2019-05-26)
PROC: B54MZZA Ultrasonography of Right Upper Extremity Veins, Guidance (ICD-10-PCS; 2019-05-26)
PROC: 5A1221Z Performance of Cardiac Output, Continuous (ICD-10-PCS; 2019-05-26)
PROC: B24BZZ4 Ultrasonography of Heart with Aorta, Transesophageal (ICD-10-PCS; 2019-05-26)
PROC: 02RX0JZ Replacement of Thoracic Aorta, Ascending/Arch with Synthetic Substitute, Open Approach (ICD-10-PCS; principal; 2019-05-26 07:50)
PROC: 5A2204Z Restoration of Cardiac Rhythm, Single (ICD-10-PCS; 2019-05-27)
PROC: 30233N1 Transfusion of Nonautologous Red Blood Cells into Peripheral Vein, Percutaneous Approach (ICD-10-PCS; 2019-05-28)
PROC: B3201ZZ Computerized Tomography (CT Scan) of Thoracic Aorta using Low Osmolar Contrast (ICD-10-PCS; 2019-05-28)
PROC: B42C1ZZ Computerized Tomography (CT Scan) of Pelvic Arteries using Low Osmolar Contrast (ICD-10-PCS; 2019-05-28)
PROC: 4A10X4Z Monitoring of Central Nervous Electrical Activity, External Approach (ICD-10-PCS; 2019-05-30)
PROC: 5A2204Z Restoration of Cardiac Rhythm, Single (ICD-10-PCS; 2019-05-31)
PROC: 4A10X4Z Monitoring of Central Nervous Electrical Activity, External Approach (ICD-10-PCS; 2019-05-31)
PROC: 5A09357 Assistance with Respiratory Ventilation, Less than 24 Consecutive Hours, Continuous Positive Airway Pressure (ICD-10-PCS; 2019-06-02)
DX: I25.10 Atherosclerotic heart disease of native coronary artery without angina pectoris (principal); J96.00 Acute respiratory failure, unspecified whether with hypoxia or hypercapnia; I71.01 Dissection of thoracic aorta; D68.9 Coagulation defect, unspecified; E87.0 Hyperosmolality and hypernatremia; D62 Acute posthemorrhagic anemia; E78.5 Hyperlipidemia, unspecified; F41.1 Generalized anxiety disorder; G25.3 Myoclonus; I10 Essential (primary) hypertension; K59.00 Constipation, unspecified; I95.9 Hypotension, unspecified; E66.9 Obesity, unspecified; I34.0 Nonrheumatic mitral (valve) insufficiency; G47.33 Obstructive sleep apnea (adult) (pediatric); K21.9 Gastro-esophageal reflux disease without esophagitis; I48.0 Paroxysmal atrial fibrillation; Z82.49 Family history of ischemic heart disease and other diseases of the circulatory system; Z85.828 Personal history of other malignant neoplasm of skin; Z68.30 Body mass index [BMI] 30.0-30.9, adult
CPT/HCPCS: 0232T; 93312; 93325; 36415; 36600; 70450; 71045; 71046; 71275; 74174; 80048; 80053; 80177; 81001; 82330; 82435; 82550; 82803; 82947; 82948; 83036; 83735; 84100; 84132; 84295; 85018; 85025; 85027; 85347; 85379; 85384; 85610; 85730; 86885; 86900; 86901; 86920; 87081; 88304; 88305; 88341; 88342; 93005; 93880; 93971; 94002; 94003; 94010; 94668; 94760; 95816; 97110; 97116; 97530; 97535; A4618; A6258; A6402; A6449; A7000; A7048; C1713; C1751; C9113; C9132; G0378; J0282; J0690; J1100; J1265; J1644; J1815; J1940; J1953; J2001; J2060; J2150; J2250; J2270; J2370; J2440; J2597; J2704; J2795; J2930; J3010; J3370; J3475; J3480; J3490; J7030; J7040; J7050; J7060; J7120; L8670; P9012; P9016; P9035; P9045; P9047; P9059; Q9967

== ENCOUNTER 2021-10-24 13:41 | Emergency (ER) | payer MEDICARE, OTHER ==
[~2021-10-24] VITALS: Ht 175.3 cm; Wt 95.5 kg
[~2021-10-24 13:41] MED LIST changes: -DOCUMENT DATE & TIME OF BETA-BLOCKER PO ONE; -LORazepam 2 mg/ml vial IV ONE; -OMEP20CA11 PO; +OMEP20CA15 PO; -ROPIVAcaine 0.5% (5mg/ml) 30ml vial ONE; -cefazolin/dext.iso 2gm/50ml 50 ML IV ONE; -famotidine 20mg tablet PO ONE; -gabapentin 300mg capsule PO ONE; -mupirocin 2% nasal ointment 1gm UD NS ONE; -ringers solution, lacted 1,000 ML IV SCH; -vancomycin inj 1,500 MG in normal saline 300ml IV soln IV ONE
[2021-10-24] MEDS: metoprolol tartrate 1mg/ml inj IV ONE (14:10)
[2021-10-24 14:17] LABS: BASOPHILS % (AUTO) 0.2 % (0-1); EOSINOPHILS # (AUTO) 0.1 X10'3 (0-0.9); EOSINOPHILS % (AUTO) 0.9 % (0-6); HEMATOCRIT 44.6 % (42.0-52.0); HEMOGLOBIN 14.9 g/dl (14.0-17.9); LYMPHOCYTES # (AUTO) 2.4 X10'3 (1.1-4.8); LYMPHOCYTES % (AUTO) 31.4 % (21-51); MEAN CORPUSCULAR HEMOGLOBIN 29.6 PG (27.0-31.0); MEAN CORPUSCULAR HGB CONC 33.5 g/dL (33.0-36.5); MEAN CORPUSCULAR VOLUME 88.6 FL (78-98); MONOCYTES # (AUTO) 0.7 X10'3 (0-0.9); MONOCYTES % (AUTO) 8.9 % (2-12); NEUTROPHILS # (AUTO) 4.5 X10'3 (1.8-7.7); NEUTROPHILS % (AUTO) 58.6 % (42-75); PLATELET COUNT 236 X10'3 (140-440); RED BLOOD COUNT 5.04 X10'6 (4.70-6.10); RED CELL DISTRIBUTION WIDTH 15.7 % (11.5-14.5); WHITE BLOOD COUNT 7.6 X10'3 (4.5-11.0)
[2021-10-24] MEDS ORDERED: ATOR10TA70 PO (14:28)
[2021-10-24] MEDS ORDERED: OMEP20CA16 PO (14:28)
[2021-10-24 14:31] LABS: ALANINE AMINOTRANSFERASE 32 U/L (12-78); ALBUMIN/GLOBULIN RATIO 1.1 (1.1-1.5); ALKALINE PHOSPHATASE 88 IU/L (46-116); ANION GAP 11 (8-16); ASPARTATE AMINO TRANSFERASE 25 U/L (10-37); BILIRUBIN,TOTAL 0.4 MG/DL (0.1-1.0); BLOOD UREA NITROGEN 20 MG/DL (7-18); BUN/CREATININE RATIO 24.4 (5.4-32.0); CALCIUM 9.3 MG/DL (8.5-10.1); CHLORIDE 104 MMOL/L (99-107); CREATININE 0.82 MG/DL (0.60-1.10); GLUCOSE 114 MG/DL (70-104); POTASSIUM 3.9 MMOL/L (3.5-5.1); SODIUM 141 MMOL/L (135-145); TOTAL CARBON DIOXIDE 25.7 MMOL/L (24-32); TOTAL PROTEIN 7.5 G/DL (6.4-8.2); eGFR > 90 ML/MIN
[2021-10-24] MEDS ORDERED: APIX5TAB3 PO (15:01)
[2021-10-24 15:22] VITALS: BP 117/69
== END 2021-10-24 15:24 | disposition home or self-care (01) ==
LOC: ER 13:41
DX: I48.91 Unspecified atrial fibrillation (principal); Z79.82 Long term (current) use of aspirin; Z79.899 Other long term (current) drug therapy
CPT/HCPCS: 36415; 71045; 80053; 83880; 84484; 85025; 93005; 96374; 99285; J3490

== ENCOUNTER 2022-07-13 15:59 | Emergency (ER) | payer MEDICARE, OTHER ==
[~2022-07-13] VITALS: Ht 175.3 cm; Wt 95.5 kg
[~2022-07-13 15:59] MED LIST changes: +APIX5TAB3 PO; +ATOR10TA70 PO; -OMEP20CA15 PO; +OMEP20CA16 PO
[2022-07-13 16:36] LABS: BASOPHILS % (AUTO) 0.4 % (0-1); EOSINOPHILS # (AUTO) 0.1 X10'3 (0-0.9); EOSINOPHILS % (AUTO) 1.2 % (0-6); HEMATOCRIT 43.7 % (42.0-52.0); HEMOGLOBIN 14.6 g/dl (14.0-17.9); LYMPHOCYTES # (AUTO) 2.2 X10'3 (1.1-4.8); LYMPHOCYTES % (AUTO) 30.8 % (21-51); MEAN CORPUSCULAR HEMOGLOBIN 29.4 PG (27.0-31.0); MEAN CORPUSCULAR HGB CONC 33.5 g/dL (33.0-36.5); MEAN CORPUSCULAR VOLUME 87.8 FL (78-98); MEAN PLATELET VOLUME 7.5 FL (7.4-10.4); MONOCYTES # (AUTO) 0.7 X10'3 (0-0.9); MONOCYTES % (AUTO) 9.5 % (2-12); NEUTROPHILS # (AUTO) 4.2 X10'3 (1.8-7.7); NEUTROPHILS % (AUTO) 58.1 % (42-75); PLATELET COUNT 175 X10'3 (140-440); RED BLOOD COUNT 4.97 X10'6 (4.70-6.10); RED CELL DISTRIBUTION WIDTH 15.8 % (11.5-14.5); WHITE BLOOD COUNT 7.1 X10'3 (4.5-11.0)
[2022-07-13 17:01] LABS: ALANINE AMINOTRANSFERASE 22 U/L (12-78); ALBUMIN/GLOBULIN RATIO 1.2 (1.1-1.5); ALKALINE PHOSPHATASE 98 IU/L (46-116); ANION GAP 9 (8-16); ASPARTATE AMINO TRANSFERASE 27 U/L (10-37); BILIRUBIN,TOTAL 0.5 MG/DL (0.1-1.0); BLOOD UREA NITROGEN 18 MG/DL (7-18); BUN/CREATININE RATIO 22.8 (5.4-32.0); CALCIUM 8.8 MG/DL (8.5-10.1); CHLORIDE 104 MMOL/L (99-107); CREATININE 0.79 MG/DL (0.60-1.10); GLUCOSE 98 MG/DL (70-104); MAGNESIUM 1.9 MG/DL (1.5-2.4); POTASSIUM 3.7 MMOL/L (3.5-5.1); SODIUM 139 MMOL/L (135-145); TOTAL PROTEIN 7.3 G/DL (6.4-8.2); eGFR > 90 ML/MIN
[2022-07-13] MEDS ORDERED: propofol 10mg/ml 20ml vial IV ONE (17:35)
[2022-07-13] MEDS ORDERED: ondansetron/PF 4mg/2ml inj IV ONE (17:35)
[2022-07-13] MEDS ORDERED: magnesium 2GM in 50ml NS 50 ML IV ONE (18:15)
[2022-07-13] MEDS ORDERED: MAGN64TA8 PO (19:41)
[2022-07-13 20:30] VITALS: BP 129/87
== END 2022-07-13 20:31 | disposition home or self-care (01) ==
LOC: ER 15:59
DX: I48.91 Unspecified atrial fibrillation (principal); I11.9 Hypertensive heart disease without heart failure; E78.00 Pure hypercholesterolemia, unspecified; Z79.899 Other long term (current) drug therapy
CPT/HCPCS: 36415; 71045; 80053; 83735; 83880; 84484; 85025; 85610; 92960; 93005; 96365; 96366; 96375; 99285; J2405; J2704; J3475; J7030; A4620

== ENCOUNTER 2023-07-27 12:11 | Emergency (ER) | payer MEDICARE, OTHER ==
[~2023-07-27] VITALS: Ht 175.3 cm; Wt 97.7 kg
[~2023-07-27 12:11] MED LIST changes: +MAGN64TA8 PO
[2023-07-27 12:22] VITALS: TEMP 98
[2023-07-27 12:59] LABS: BASOPHILS % (AUTO) 0.5 % (0-1); EOSINOPHILS # (AUTO) 0.1 X10'3 (0-0.9); EOSINOPHILS % (AUTO) 1.1 % (0-6); HEMATOCRIT 43.4 % (42.0-52.0); HEMOGLOBIN 14.6 g/dl (14.0-17.9); LYMPHOCYTES # (AUTO) 1.7 X10'3 (1.1-4.8); LYMPHOCYTES % (AUTO) 31.5 % (21-51); MEAN CORPUSCULAR HGB CONC 33.7 g/dL (33.0-36.5); MEAN PLATELET VOLUME 7.3 FL (7.4-10.4); MONOCYTES # (AUTO) 0.6 X10'3 (0-0.9); MONOCYTES % (AUTO) 10.3 % (2-12); NEUTROPHILS # (AUTO) 3.1 X10'3 (1.8-7.7); NEUTROPHILS % (AUTO) 56.6 % (42-75); PLATELET COUNT 184 X10'3 (140-440); RED BLOOD COUNT 4.88 X10'6 (4.70-6.10); RED CELL DISTRIBUTION WIDTH 14.9 % (11.5-14.5); WHITE BLOOD COUNT 5.4 X10'3 (4.5-11.0)
[2023-07-27 13:03] LABS: ALANINE AMINOTRANSFERASE 32 U/L (12-78); ALBUMIN/GLOBULIN RATIO 1.1 (1.1-1.5); ALKALINE PHOSPHATASE 101 IU/L (46-116); ANION GAP 7 (8-16); ASPARTATE AMINO TRANSFERASE 29 U/L (10-37); BILIRUBIN,TOTAL 0.5 MG/DL (0.1-1.0); BLOOD UREA NITROGEN 13 MG/DL (7-18); BUN/CREATININE RATIO 18.1 (10.0-20.0); CALCIUM 8.9 MG/DL (8.5-10.1); CHLORIDE 101 MMOL/L (99-107); CREATININE 0.72 MG/DL (0.60-1.10); GLUCOSE 90 MG/DL (70-104); POTASSIUM 3.9 MMOL/L (3.5-5.1); SODIUM 139 MMOL/L (135-145); TOTAL CARBON DIOXIDE 30.9 MMOL/L (24-32); TOTAL PROTEIN 7.6 G/DL (6.4-8.2); eCRCL 86 ML/MIN; eGFR > 90 ML/MIN
[2023-07-27 13:12] LABS: PRO BRAIN NATRIURETIC PEPTIDE 657 PG/ML (0-450)
[2023-07-27 16:07] VITALS: BP 139/98; PULSE 78; RESP 17; O2SAT 97
== END 2023-07-27 19:17 | disposition left against medical advice (07) ==
LOC: ER 12:12
DX: R00.2 Palpitations (principal); Z53.21 Procedure and treatment not carried out due to patient leaving prior to being seen by health care provider
CPT/HCPCS: 36415; 71045; 80053; 83880; 84484; 85025; 93005; 99281